=== PATIENT | female | born 1985 ===

== ENCOUNTER 2016-08-24 19:57 | Inpatient (IN) | payer BC, MEDICAID ==
--- NOTE | 2016-08-24 20:29 | ED PDOC ---
HPI: General Adult Time Seen by Provider: 08/24/16 20:25 Chief Complaint (Nursing): Abdominal Pain Chief Complaint (Provider): abdominal pain History Per: Patient History/Exam Limitations: no limitations Additional Complaint(s): 31yo female comes to the ED complaining of abdominal pain and vomit today. Reports sensation of needing to pass a bowel movement but unable to produces when she goes. She denies diarrhea and states she has regular bowel movements normally, last one was yesterday. She has chills but no fever. This has never happened before. Past Medical History Reviewed: Historical Data, Nursing Documentation, Vital Signs Vital Signs: Last Vital Signs Temp 99.2 F 08/25/16 03:29 Pulse 72 08/25/16 03:29 Resp 19 08/25/16 03:29 BP 96/59 L 08/25/16 03:29 Pulse Ox 98 08/25/16 03:29 - Medical History PMH: Hyperthyroidism - Surgical History Surgical History: No Surg Hx - Family History Family History: States: Unknown Family Hx - Home Medications Home Medications: Ambulatory Orders Medication Instructions Recorded No Known Home Med 08/25/16 - Allergies Allergies/Adverse Reactions: Allergies Allergy/AdvReac Type Severity Reaction Status Date / Time No Known Allergies Allergy Verified 06/01/14 11:41 Review of Systems ROS Statement: Except As Marked, All Systems Reviewed And Found Negative Constitutional: Positive for: Chills. Negative for: Fever Gastrointestinal: Positive for: Nausea, Vomiting, Abdominal Pain. Negative for : Diarrhea, Constipation Physical Exam - Reviewed Nursing Documentation Reviewed: Yes Vital Signs Reviewed: Yes - Physical Exam Appears: Positive for: Non-toxic, No Acute Distress, Uncomfortable Head Exam: Positive for: ATRAUMATIC, NORMAL INSPECTION, NORMOCEPHALIC Skin: Positive for: Warm, Dry Eye Exam: Positive for: EOMI, PERRL Cardiovascular/Chest: Positive for: Regular Rate, Rhythm Respiratory: Positive for: Normal Breath Sounds. Negative for: Rales, Rhonchi, Wheezing Gastrointestinal/Abdominal: Positive for: Soft, Tenderness (epigastric). Negative for: Guarding Extremity: Positive for: Normal ROM - Laboratory Results Result Diagrams: 08/24/16 20:36 08/24/16 20:36 - ECG O2 Sat by Pulse Oximetry: 100 (RA) Pulse Ox Interpretation: Normal Medical Decision Making Medical Decision Makin impression gastritis plan labs IV Fluids zofran protonix reassess ED OBSERVATION Date of observation admission: 08/24/16 Time of observation admission: 21:38 - Goals of Observation Goals of observation are:: extended workup, determine disposition - Progress Note Progress Note: 08/24/16 21:38 Reglan, Morphine ordered. US Gallbladder & Pancreas, CT abd/pel w/ ordered. 08/25/16 02:26 Patient continued to have vomiting despite mult rounds of zofran. Patient has appendicitis without rupture on CT. Spoke with Dr. Lopez who will accept consult for surgery, stated to admit patient to hospitalist. Spoke with Dr. Kelley who accepts admission. Disposition - Clinical Impression Clinical Impression: Appendicitis - Patient ED Disposition Is Patient to be Admitted: No - Disposition Disposition Time: 02:30 Condition: STABLE - POA Present On Arrival: None Additional Comments - Additional Comments Additional Comments: Scribe Attestation: Documented by Chacho Sam acting as a scribe for Jack Padgett MD. Provider Scribe Attestation: All medical record entries made by the Scribe were at my direction and personally dictated by me. I have reviewed the chart and agree that the record accurately reflects my personal performance of the history, physical exam, medical decision making, and the department course for this patient. I have also personally directed, reviewed, and agree with the discharge instructions and disposition.
[2016-08-24] MEDS ORDERED: Sodium Chloride 0.9% 1,000 ML IV STA ×2 (20:31→23:34)
[2016-08-24 20:48] LABS: BASO # 0.1 K/uL (0.0-0.2); BASO % 0.4 % (0.0-2.0); EOS # 0.1 K/uL (0.0-0.7); EOS % 0.4 % (0.0-4.0); HEMATOCRIT 39.9 % (34.0-47.0); LYMPH # 1.8 K/uL (1.0-4.3); LYMPH % 12.5 % (20.0-40.0); MEAN CELL VOLUME 83.7 fl (81.0-99.0); MEAN CORPUSCULAR HEMOGLOBIN 27.6 pg (27.0-31.0); MEAN PLATELET VOLUME 9.1 fl (7.2-11.7); MONO # 0.9 K/uL (0.0-0.8); MONO % 5.8 % (0.0-10.0); NEUT % 80.9 % (50.0-75.0); RED CELL DISTRIBUTION WIDTH 12.6 % (11.5-14.5); WHITE BLOOD COUNT 14.8 K/uL (4.8-10.8)
[2016-08-24 20:51] LABS: RBC URINE 4 /hpf (0-3); URINE BACTERIA RARE (<OCC); URINE BILIRUBIN NEGATIVE (NEGATIVE); URINE BLOOD SMALL (NEGATIVE); URINE COLOR YELLOW (YELLOW); URINE GLUCOSE (UA) NEG (Normal); URINE KETONE 80 mg/dL (NEGATIVE); URINE LEUKOCYTE ESTERASE NEG Leu/uL (Negative); URINE PROTEIN 100 mg/dL (NEGATIVE); URINE UROBILINOGEN 0.2-1.0 mg/dL (0.2-1.0); WBC URINE 3 /hpf (0-5)
[2016-08-24 20:59] LABS: ALB/GLOB RATIO 1.2 (1.0-2.1); ALKALINE PHOSPHATASE 68 U/L (38-126); ALT/SGPT 29 U/L (9-52); AST/SGOT 24 U/L (14-36); BILIRUBIN,TOTAL 0.7 mg/dl (0.2-1.3); BLOOD UREA NITROGEN 11 mg/dl (7-17); CALCIUM 9.9 mg/dL (8.4-10.2); CARBON DIOXIDE 21 mmol/L (22-30); CHLORIDE 103 mmol/L (98-107); GFR AFRICAN-AMERICAN > 60; GLUCOSE,RANDOM 131 mg/dL (65-105); LIPASE 79 U/L (23-300); POTASSIUM 3.3 MMOL/L (3.6-5.0); SODIUM 141 mmol/l (132-148); TOTAL PROTEIN 8.7 G/DL (6.3-8.2)
[2016-08-24] MEDS ORDERED: Iohexol 240 (50 ml) PO ONE (21:33)
--- NOTE | 2016-08-24 23:04 | US ---
EXAM: US Abdomen Limited, Right Upper Quadrant CLINICAL HISTORY: 31 years old, female; Pain; Abdominal pain; Epigastric; Additional info: Epig pain, R/O cholecystitis TECHNIQUE: Real-time ultrasound of the right upper quadrant with image documentation. COMPARISON: No relevant prior studies available. FINDINGS: Liver: The liver is unremarkable in echogenicity and size measuring 13.7 cm in longitudinal dimension. No intrahepatic bile duct dilation. Gallbladder: No acute findings. No gallstones. Common bile duct: No stones. No dilation, measuring 3 mm. Pancreas: Visualization of the pancreas is limited by overlying bowel gas. Right kidney: No acute findings. No obstructing stones. No solid mass. No hydronephrosis. The right kidney measures 10.3 x 4.3 x 3.5 cm IMPRESSION: Unremarkable sonographic evaluation of the right upper quadrant, as detailed above. Limited evaluation of the pancreas, secondary to overlying bowel gas.
[2016-08-24] MEDS ORDERED: Iohexol 240 (50 ml) ONE (23:45)
[2016-08-25] MEDS ORDERED: DiphenhydrAMINE 50 mg/ml Inj IVP STA (00:36)
[2016-08-25] MEDS ORDERED: Promethazine 25 MG in Sodium Chloride 0.9% 50 ML IVPB ONE (00:36)
[2016-08-25] MEDS ORDERED: Sodium Chloride 0.9% 50 ML IV ONE (01:17)
[2016-08-25] MEDS ORDERED: Iohexol 300 100 ML IJ ONE (01:17)
[2016-08-25] MEDS ORDERED: Piperacillin/Tazobact 3.375 gm Inj IVPB ONE ×2 (02:15→15:10)
[2016-08-25] MEDS ORDERED: Piperacillin/Tazobact 3.375 GM in Sodium Chloride 0.9% 100 ML IVPB STA (02:18)
[2016-08-25] MEDS ORDERED: Sodium Chloride 0.9% 1,000 ML IV STA (02:19)
--- NOTE | 2016-08-25 02:34 | CP.PCM.HP ---
History of Present Illness - History of Present Illness History of Present Illness: CC: Abd pain, n/v HPI: This is a 31 y/o female with no chronic medical conditions who comes in with abd pain and n/v today. Apparently she describes sensation as needing to pass a BM. She denies f/c. Denies diarrhea. Nothing improves or worsens pain. She has never had these symptoms before. ROS: 14 systems reviewed, negative other than HPI MHx: Hyperthyroid in the past, no medications currently SHx: None Allergies: NKDA Medications: as per med rec Family Hx: Reviewed, negative other than HPI Social Hx: Lives with family, denies tobacco, denies significant EtOH Present on Admission - Present on Admission Any Indicators Present on Admission: No Past Patient History - Past Social History Smoking Status: Unknown If Ever Smoked - ENDOCRINE/METABOLIC Hx Hyperthyroidism: Yes - GENITOURINARY/GYNECOLOGICAL Other/Comment: hx kidney infection - PSYCHIATRIC Hx Substance Use: No - SURGICAL HISTORY Hx Surgeries: No Meds Allergies/Adverse Reactions: Allergies Allergy/AdvReac Type Severity Reaction Status Date / Time No Known Allergies Allergy Verified 06/01/14 11:41 Physical Exam - Constitutional Appears: No Acute Distress - Head Exam Head Exam: ATRAUMATIC, NORMOCEPHALIC - Eye Exam Eye Exam: EOMI, PERRL Pupil Exam: NORMAL ACCOMODATION - ENT Exam ENT Exam: Mucous Membranes Moist - Neck Exam Neck exam: Positive for: Full Rom - Respiratory Exam Respiratory Exam: Clear to Auscultation Bilateral, NORMAL BREATHING PATTERN - Cardiovascular Exam Cardiovascular Exam: REGULAR RHYTHM, +S1, +S2 - GI/Abdominal Exam GI & Abdominal Exam: Normal Bowel Sounds, Soft, Tenderness - Extremities Exam Extremities exam: Positive for: full ROM, normal inspection - Neurological Exam Neurological exam: Alert, CN II-XII Intact, Oriented x3 - Psychiatric Exam Psychiatric exam: Normal Affect, Normal Mood - Skin Skin Exam: Dry, Warm Results - Vital Signs Recent Vital Signs: Last Vital Signs Temp 98.4 F 08/25/16 02:30 Pulse 77 08/25/16 02:30 Resp 16 08/25/16 02:30 BP 106/63 08/25/16 02:30 Pulse Ox 99 08/25/16 02:30 - Labs Result Diagrams: 08/24/16 20:36 08/24/16 20:36 - Imaging and Cardiology US - abdomen Status: Report reviewed by me (no findings) CT scan - abdomen Status: Image reviewed by me (prelim report indicates appendicitis) Assessment & Plan (1) Acute appendicitis Assessment and Plan: 31 y/o female presenting with acute appendicitis. -NPO, IVF -Morphine, Zofran IV for pain, n/v -Cont Zosyn 3.375 q6h IV -Surgical consult (notified, OR likely in AM) -DVT PPx -- SCDs only Status: Acute
[2016-08-25] MEDS: Piperacillin/Tazobact 3.375 GM in Sodium Chloride 0.9% 100 ML IVPB SCH ×4 (04:44→21:48)
[2016-08-25] MEDS: Sodium Chloride 0.9% 1,000 ML IV SCH ×2 (06:32→10:27)
[2016-08-25 07:03] LABS: BASO % 0.1 % (0.0-2.0); HEMATOCRIT 35.4 % (34.0-47.0); LYMPH # 0.8 K/uL (1.0-4.3); LYMPH % 5.5 % (20.0-40.0); MEAN CELL VOLUME 84.4 fl (81.0-99.0); MEAN CORPUSCULAR HEMOGLOBIN 27.4 pg (27.0-31.0); MEAN CORPUSCULAR HGB CONC 32.5 g/dL (33.0-37.0); MEAN PLATELET VOLUME 9.2 fl (7.2-11.7); MONO # 0.8 K/uL (0.0-0.8); MONO % 6.1 % (0.0-10.0); NEUT # 12.3 K/uL (1.8-7.0); NEUT % 88.3 % (50.0-75.0); NRBC % 0.1 % (0.0-0.0); PLATELET COUNT 184 K/uL (130-400); RED CELL DISTRIBUTION WIDTH 12.5 % (11.5-14.5); WHITE BLOOD COUNT 13.9 K/uL (4.8-10.8)
[2016-08-25 07:21] LABS: BLOOD UREA NITROGEN 6 mg/dl (7-17); CALCIUM 7.7 mg/dL (8.4-10.2); CARBON DIOXIDE 20 mmol/L (22-30); CHLORIDE 106 mmol/L (98-107); GFR AFRICAN-AMERICAN > 60; GLUCOSE,RANDOM 123 mg/dL (65-105); POTASSIUM 3.5 MMOL/L (3.6-5.0); SODIUM 138 mmol/l (132-148)
--- NOTE | 2016-08-25 11:11 | CT ---
PROCEDURE: CT Abdomen and pelvis dated 08/25/2016 HISTORY: epig abd pain COMPARISON: None. TECHNIQUE: Contiguous axial images of the abdomen and pelvis performed following oral and intravenous injection of approximately 90 cc Omnipaque 300 contrast material. . Coronal and Sagittal reformats generated. Radiation dose: Total exam DLP = 329.15 mGy-cm. This CT exam was performed using one or more of the following dose reduction techniques: Automated exposure control, adjustment of the mA and/or kV according to patient size, and/or use of iterative reconstruction technique. FINDINGS: LOWER THORAX: Unremarkable. LIVER: Unremarkable. No gross lesion or ductal dilatation. GALLBLADDER AND BILE DUCTS: Unremarkable. PANCREAS: Unremarkable. No mass. No ductal dilatation. SPLEEN: Unremarkable. No splenomegaly. ADRENALS: Unremarkable. KIDNEYS AND URETERS: Unremarkable. No stone or hydronephrosis. BLADDER: Grossly unremarkable. REPRODUCTIVE: Unremarkable. APPENDIX: The appendix is dilated measuring up to 18.5 mm in greatest diameter. The appendix lumen contains bubbles of air and debris. The proximal wall of the appendix is not appear significantly thickened however the walled near the distal aspect and tip is slightly more prominent in caliber and does exhibit some enhancement. There is a focal heterogeneous density seen within the lumen of the base of the appendix that could represent some contrast or possibly an appendicolith. . . Findings most consistent with acute appendicitis. Note that the appendix extends and deep into the right parasagittal aspect of the pelvis -right parasagittal cul de sac. There is also small amount of free fluid within the cul de sac. There also appears to be wall thickening of the adjacent cecum and proximal ascending colon which could be reactive. . These findings on could represent an acute appendicitis with reactive changes of the cecum and proximal ascending colon . Changes in the more distal ascending colon could be secondary additional unopacified adherent stool and peristalsis in the more proximal ascending colon. Note also that the possibility of a localized colitis the with secondary reactive changes of the appendix cannot be completely excluded. Clinical correlation recommended. BOWEL: Evaluation of the bowel is somewhat limited due to incomplete opacification. The stomach is incompletely distended which presumably accounts slight thick-walled appearance. Visualized loops of small bowel exhibit normal contour and caliber. No evidence acute mechanical small bowel obstruction. . The changes of the cecum and at ascending colon have been detailed above. Clinical correlation recommended. . PERITONEUM: No gross free intraperitoneal air. LYMPH NODES: Unremarkable. No enlarged lymph nodes. VASCULATURE: Unremarkable. No aortic aneurysm. BONES: No fracture or destructive lesion. OTHER FINDINGS: None. IMPRESSION: Marked dilatation of the appendix however the appendix contains fluid and air with no significant wall thickening proximally however distally and at the tip of the wall is slightly thickened and exhibits some enhancement. . Findings are consistent with acute appendicitis with secondary reactive changes and thickening of the wall of the cecum however the possibility of a colitis with secondary reactive changes involving the appendix also not excluded. . Note that the appendix extends deep into the right parasagittal aspect of the pelvis and there is a small amount of free fluid within the cul de sac adjacent to the tip of the appendix. Note that this case was reviewed and findings discussed with Dr. James at approximately at 10:10 p.m. with written down and read back verification.
[2016-08-25 11:23] LABS: NEUTROPHIL 90 % (42-75); REACTIVE LYMPHOCYTES 4 % (0-0); TOTAL CELLS COUNTED 100
--- NOTE | 2016-08-25 11:26 | CP.PCM.CON ---
<Noah Patterson - Last Filed: 08/25/16 11:17> History of Present Illness - History of Present Illness History of Present Illness: General Surgery Consult Note for Dr. James CC: Abdominal Pain X 1 day HPI: This is a 31 year old mother of 3, started experiencing lower abdominal pain yesterday early afternoon. She reports that she had soup for lunch and and that she threw it up. She reports the pain has been getting progressively worse. The patient reports in ability to urinate until this AM. She denies any fevers, or chills, at home. She reports nonbloody non bilious emesis. She denies any hematochezia or hematuria. PMH: Hyperthyroid PSH: Denies ALL: Nkda Social: Denies tobacco, ETOH, or drug use Review of Systems - Review of Systems All systems: reviewed and no additional remarkable complaints except Past Patient History - Past Medical History & Family History Past Medical History?: Yes - Past Social History Smoking Status: Never Smoked - CARDIAC Hx Cardiac Disorders: No - PULMONARY Hx Respiratory Disorders: No - NEUROLOGICAL Hx Neurological Disorder: No - HEENT Hx HEENT Problems: No - RENAL Hx Chronic Kidney Disease: No - ENDOCRINE/METABOLIC Hx Endocrine Disorders: Yes Hx Hyperthyroidism: Yes - HEMATOLOGICAL/ONCOLOGICAL Hx Blood Disorders: No - INTEGUMENTARY Hx Dermatological Problems: No - MUSCULOSKELETAL/RHEUMATOLOGICAL Hx Musculoskeletal Disorders: No Hx Falls: No - GASTROINTESTINAL Hx Gastrointestinal Disorders: No - GENITOURINARY/GYNECOLOGICAL Hx Genitourinary Disorders: Yes Other/Comment: hx kidney infection - PSYCHIATRIC Hx Psychophysiologic Disorder: No Hx Substance Use: No - SURGICAL HISTORY Hx Surgeries: No - ANESTHESIA Hx Anesthesia: No Hx Anesthesia Reactions: No Hx Malignant Hyperthermia: No Meds Allergies/Adverse Reactions: Allergies Allergy/AdvReac Type Severity Reaction Status Date / Time No Known Allergies Allergy Verified 06/01/14 11:41 - Medications Medications: Current Medications Piperacillin Sod/Tazobactam (Sod 3.375 gm/ Sodium Chloride) 100 mls @ 100 mls/ hr IVPB Q6 JAKY Last Admin: 08/25/16 10:27 Dose: 100 mls/hr Sodium Chloride (Sodium Chloride 0.9%) 1,000 mls @ 100 mls/hr IV .Q10H JAKY Stop: 08/25/16 22:29 Last Admin: 08/25/16 10:27 Dose: 100 mls/hr Morphine Sulfate (Morphine) 2 mg IVP Q4 PRN PRN Reason: Pain, Mild (1-3) Morphine Sulfate (Morphine) 4 mg IVP Q4 PRN PRN Reason: Pain, moderate (4-7) Last Admin: 08/25/16 06:42 Dose: 4 mg Ondansetron HCl (Zofran Inj) 4 mg IVP Q6 PRN PRN Reason: Nausea/Vomiting Physical Exam - Constitutional Appears: Non-toxic, No Acute Distress - Head Exam Head Exam: ATRAUMATIC, NORMOCEPHALIC - Eye Exam Eye Exam: EOMI, Normal appearance - ENT Exam ENT Exam: Mucous Membranes Moist - Respiratory Exam Respiratory Exam: NORMAL BREATHING PATTERN - Cardiovascular Exam Cardiovascular Exam: +S1, +S2 - GI/Abdominal Exam GI & Abdominal Exam: Firm, Guarding, Rebound, Tenderness. absent: Distended, Hernia Additional comments: Positive rovsing, positive psoas - Neurological Exam Neurological exam: Alert, Oriented x3 - Psychiatric Exam Psychiatric exam: Normal Affect, Normal Mood - Skin Skin Exam: Dry, Intact Results - Vital Signs Recent Vital Signs: Last Vital Signs Temp 98.8 F 08/25/16 07:21 Pulse 89 08/25/16 07:21 Resp 18 08/25/16 07:21 BP 98/61 L 08/25/16 07:21 Pulse Ox 98 08/25/16 07:21 - Labs Result Diagrams: 08/25/16 05:45 08/25/16 05:45 Labs: Laboratory Results - last 24 hr 08/25/16 08/25/16 05:45 05:45 WBC 13.9 H RBC 4.19 Hgb 11.5 L Hct 35.4 MCV 84.4 MCH 27.4 MCHC 32.5 L RDW 12.5 Plt Count 184 MPV 9.2 Neut % (Auto) 88.3 H Lymph % (Auto) 5.5 L [place] % (Auto) 6.1 Eos % (Auto) 0.0 Baso % (Auto) 0.1 Neut # 12.3 H Lymph # 0.8 L [place] # 0.8 Eos # 0.0 Baso # 0.0 Sodium 138 Potassium 3.5 L Chloride 106 Carbon Dioxide 20 L Anion Gap 16 BUN 6 L Creatinine 0.5 L Est GFR ( Amer) > 60 Est GFR (Non-Af Amer) > 60 Random Glucose 123 H Calcium 7.7 L - Imaging and Cardiology CT scan - abdomen Status: Image reviewed by me CT scan - pelvis Status: Image reviewed by me Assessment & Plan - Assessment and Plan (Free Text) Assessment: This is a 31F with acute appendicitis OR today Continue medical management per primary team. <Erick James - Last Filed: 08/25/16 13:22> History of Present Illness - History of Present Illness History of Present Illness: Patient was seen and examined at the bedside. Agree with resident's note above. Meds - Medications Medications: Current Medications Piperacillin Sod/Tazobactam (Sod 3.375 gm/ Sodium Chloride) 100 mls @ 100 mls/ hr IVPB Q6 JAKY Last Admin: 08/25/16 10:27 Dose: 100 mls/hr Sodium Chloride (Sodium Chloride 0.9%) 1,000 mls @ 100 mls/hr IV .Q10H JAKY Stop: 08/25/16 22:29 Last Admin: 08/25/16 10:27 Dose: 100 mls/hr Morphine Sulfate (Morphine) 2 mg IVP Q4 PRN PRN Reason: Pain, Mild (1-3) Morphine Sulfate (Morphine) 4 mg IVP Q4 PRN PRN Reason: Pain, moderate (4-7) Last Admin: 08/25/16 06:42 Dose: 4 mg Ondansetron HCl (Zofran Inj) 4 mg IVP Q6 PRN PRN Reason: Nausea/Vomiting Results - Vital Signs Recent Vital Signs: Last Vital Signs Temp 98.8 F 08/25/16 07:21 Pulse 89 08/25/16 07:21 Resp 18 08/25/16 07:21 BP 98/61 L 08/25/16 07:21 Pulse Ox 98 08/25/16 07:21 - Labs Result Diagrams: 08/25/16 05:45 08/25/16 05:45 Labs: Laboratory Results - last 24 hr 08/25/16 08/25/16 05:45 05:45 WBC 13.9 H RBC 4.19 Hgb 11.5 L Hct 35.4 MCV 84.4 MCH 27.4 MCHC 32.5 L RDW 12.5 Plt Count 184 MPV 9.2 Neut % (Auto) 88.3 H Lymph % (Auto) 5.5 L [place] % (Auto) 6.1 Eos % (Auto) 0.0 Baso % (Auto) 0.1 Neut # 12.3 H Lymph # 0.8 L [place] # 0.8 Eos # 0.0 Baso # 0.0 Neutrophils % (Manual) 90 H Band Neutrophils % 1 Lymphocytes % (Manual) 1 L Reactive Lymphs % 4 H Monocytes % (Manual) 4 Platelet Estimate Normal Hypochromasia (manual) Slight Sodium 138 Potassium 3.5 L Chloride 106 Carbon Dioxide 20 L Anion Gap 16 BUN 6 L Creatinine 0.5 L Est GFR ( Amer) > 60 Est GFR (Non-Af Amer) > 60 Random Glucose 123 H Calcium 7.7 L Assessment & Plan - Assessment and Plan (Free Text) Plan: - Keep NPO - IV fluids - Pain control - Continue antibiotics - To OR for Appendectomy today
[2016-08-25] MEDS ORDERED: Bupivacaine HCl 0.5% PF (30 ml) Inj ONE (11:35)
[2016-08-25] MEDS ORDERED: Midazolam 2 MG/2 ML VIAL ONE ×2 (12:02→13:01)
[2016-08-25] MEDS ORDERED: Succinylcholine 200 mg/10 ml Inj IV ONE (12:02)
[2016-08-25] MEDS ORDERED: Propofol 10 mg/ml Inj (20 ML) ONE (12:02)
[2016-08-25] MEDS ORDERED: Lidocaine Hydrochloride 5 ML INJ ONE (12:03)
[2016-08-25] MEDS ORDERED: Neostigmine Methylsulfate 2 MG/2 ML ML IV ONE (12:03)
[2016-08-25] MEDS ORDERED: Rocuronium 10 mg/ml (5 ml) ONE (12:05)
[2016-08-25] MEDS ORDERED: Bupivacaine 0.5% Inj(30mL) IJ ONE (13:26)
[2016-08-25] MEDS ORDERED: Neostigmine Methylsulfate 3mg/3ml Syringe IV ONE (13:47)
[2016-08-25] MEDS ORDERED: Lactated Ringer's 1,000 ML IV ONE (14:20)
--- NOTE | 2016-08-25 14:21 | PCM.SURG1 ---
Surgeon's Initial Post Op Note - Surgeon's Notes Surgeon: Dr. Lopez Boatswain Mate: Dr. Patterson PGY-1 Type of Anesthesia: General Endo Pre-Operative Diagnosis: Appendicitis Operative Findings: See operative Note Post-Operative Diagnosis: Acute appendicitis Operation Performed: Laparoscopic Appendectomy Specimen/Specimens Removed: Inflamed appendix Estimated Blood Loss: EBL {In ML}: 5 Drains Used: No Drains Post-Op Condition: Good Date of Surgery/Procedure: 08/25/16 Time of Surgery/Procedure: 14:21
[2016-08-25] MEDS ORDERED: HYDROmorphone 0.5 mg/0.5 ml ISec IVP PRN (14:23)
[2016-08-26] MEDS: Piperacillin/Tazobact 3.375 GM in Sodium Chloride 0.9% 100 ML IVPB SCH ×4 (04:02→21:34)
[2016-08-26 07:07] LABS: BLOOD UREA NITROGEN 5 mg/dl (7-17); CALCIUM 8.7 mg/dL (8.4-10.2); CARBON DIOXIDE 26 mmol/L (22-30); CHLORIDE 101 mmol/L (98-107); GFR AFRICAN-AMERICAN > 60; GLUCOSE,RANDOM 121 mg/dL (65-105); HEMATOCRIT 37.4 % (34.0-47.0); MEAN CELL VOLUME 84.1 fl (81.0-99.0); MEAN CORPUSCULAR HEMOGLOBIN 28.2 pg (27.0-31.0); MEAN CORPUSCULAR HGB CONC 33.5 g/dL (33.0-37.0); POTASSIUM 3.8 MMOL/L (3.6-5.0); RED CELL DISTRIBUTION WIDTH 12.6 % (11.5-14.5); SODIUM 138 mmol/l (132-148); WHITE BLOOD COUNT 10.8 K/uL (4.8-10.8)
[2016-08-26] MEDS ORDERED: Sodium Chloride 0.9% 1,000 ML IV SCH (09:15)
--- NOTE | 2016-08-26 11:07 | CP.PCM.PN ---
Subjective - Date & Time of Evaluation Date of Evaluation: 08/26/16 Time of Evaluation: 11:07 - Subjective Subjective: pt feeling well tmax 100.3 today no wbc no BM or flatus tachy 2/2 fever pain is well contrlled vss now nad Objective - Vital Signs/Intake and Output Vital Signs (last 24 hours): Temp Pulse Resp BP Pulse Ox 100.3 F H 104 H 20 104/70 98 08/26/16 08:02 08/26/16 08:02 08/26/16 08:02 08/26/16 08:02 08/26/16 08:02 - Medications Medications: Current Medications Piperacillin Sod/Tazobactam (Sod 3.375 gm/ Sodium Chloride) 100 mls @ 100 mls/ hr IVPB Q6 JAKY Last Admin: 08/26/16 04:02 Dose: 100 mls/hr Sodium Chloride (Sodium Chloride 0.9%) 1,000 mls @ 250 mls/hr IV .Q4H JAKY Stop: 08/26/16 13:14 Morphine Sulfate (Morphine) 2 mg IVP Q4 PRN PRN Reason: Pain, Mild (1-3) Last Admin: 08/26/16 10:43 Dose: 2 mg Morphine Sulfate (Morphine) 4 mg IVP Q4 PRN PRN Reason: Pain, moderate (4-7) Last Admin: 08/25/16 21:44 Dose: 4 mg Ondansetron HCl (Zofran Inj) 4 mg IVP Q6 PRN PRN Reason: Nausea/Vomiting - Labs Labs: 08/26/16 05:40 08/26/16 05:40 - Constitutional Appears: Non-toxic, No Acute Distress - Head Exam Head Exam: ATRAUMATIC, NORMOCEPHALIC - Eye Exam Eye Exam: EOMI, Normal appearance, PERRL Pupil Exam: NORMAL ACCOMODATION - ENT Exam ENT Exam: Mucous Membranes Moist, Normal Oropharynx - Neck Exam Neck Exam: Full ROM, Normal Inspection - Respiratory Exam Respiratory Exam: Clear to Ausculation Bilateral, NORMAL BREATHING PATTERN. absent: Decreased Breath Sounds, Prolonged Expiratory Phase, Rales - Cardiovascular Exam Cardiovascular Exam: REGULAR RHYTHM, RRR, +S1, +S2 - GI/Abdominal Exam GI & Abdominal Exam: Soft, Tenderness (at op site). absent: Mass, Organomegaly - Extremities Exam Extremities Exam: Normal Capillary Refill. absent: Calf Tenderness, Joint Swelling - Back Exam Back Exam: absent: CVA tenderness (L), CVA tenderness (R) - Neurological Exam Neurological Exam: Alert, Awake, Oriented x3 - Psychiatric Exam Psychiatric exam: Normal Affect, Normal Mood - Skin Skin Exam: Dry, Warm Assessment and Plan - Assessment and Plan (Free Text) Plan: (1) Acute appendicitis Assessment and Plan: s/p appendectomy POD 1 -Morphine, Zofran IV for pain, n/v -Cont Zosyn 3.375 q6h IV -Surgical consult : Dr. James appreciated and followed -DVT PPx -- SCDs only
--- NOTE | 2016-08-26 11:23 | CP.PCM.PN ---
<Noah Patterson - Last Filed: 08/26/16 11:26> Subjective - Date & Time of Evaluation Date of Evaluation: 08/26/16 Time of Evaluation: 10:23 - Subjective Subjective: General Surgery Note for Dr. James This 31F was seen and examined this Am at bedside. She reports pain overnight which responded to morphine. She denies any fevers, chills, chest pain, nausea, vomitting or diarrhea. Patient reports tolerating clears, denies flatus or BM. Objective - Vital Signs/Intake and Output Vital Signs (last 24 hours): Temp Pulse Resp BP Pulse Ox 100.3 F H 104 H 20 104/70 98 08/26/16 08:02 08/26/16 08:02 08/26/16 08:02 08/26/16 08:02 08/26/16 08:02 - Medications Medications: Current Medications Piperacillin Sod/Tazobactam (Sod 3.375 gm/ Sodium Chloride) 100 mls @ 100 mls/ hr IVPB Q6 JAKY Last Admin: 08/26/16 04:02 Dose: 100 mls/hr Sodium Chloride (Sodium Chloride 0.9%) 1,000 mls @ 250 mls/hr IV .Q4H JAKY Stop: 08/26/16 13:14 Morphine Sulfate (Morphine) 2 mg IVP Q4 PRN PRN Reason: Pain, Mild (1-3) Last Admin: 08/26/16 10:43 Dose: 2 mg Morphine Sulfate (Morphine) 4 mg IVP Q4 PRN PRN Reason: Pain, moderate (4-7) Last Admin: 08/25/16 21:44 Dose: 4 mg Ondansetron HCl (Zofran Inj) 4 mg IVP Q6 PRN PRN Reason: Nausea/Vomiting - Labs Labs: 08/26/16 05:40 08/26/16 05:40 - Constitutional Appears: Non-toxic, No Acute Distress - Head Exam Head Exam: ATRAUMATIC, NORMOCEPHALIC - Eye Exam Eye Exam: EOMI, Normal appearance - ENT Exam ENT Exam: Mucous Membranes Moist, Normal Exam - Respiratory Exam Respiratory Exam: Clear to Ausculation Bilateral - Cardiovascular Exam Cardiovascular Exam: REGULAR RHYTHM <Erick James - Last Filed: 08/26/16 15:11> Subjective - Subjective Subjective: Patient was seen and examined at the bedside. Agree with resident's note above Objective - Vital Signs/Intake and Output Vital Signs (last 24 hours): Temp Pulse Resp BP Pulse Ox 100.3 F H 104 H 20 104/70 98 08/26/16 08:02 08/26/16 08:02 08/26/16 08:02 08/26/16 08:02 08/26/16 08:02 - Medications Medications: Current Medications Guaifenesin (Mucinex [place]) 600 mg PO Q12 JAKY Piperacillin Sod/Tazobactam (Sod 3.375 gm/ Sodium Chloride) 100 mls @ 100 mls/ hr IVPB Q6 JAKY Last Admin: 08/26/16 12:30 Dose: 100 mls/hr Morphine Sulfate (Morphine) 2 mg IVP Q4 PRN PRN Reason: Pain, Mild (1-3) Last Admin: 08/26/16 10:43 Dose: 2 mg Morphine Sulfate (Morphine) 4 mg IVP Q4 PRN PRN Reason: Pain, moderate (4-7) Last Admin: 08/25/16 21:44 Dose: 4 mg Ondansetron HCl (Zofran Inj) 4 mg IVP Q6 PRN PRN Reason: Nausea/Vomiting - Constitutional Appears: Non-toxic, No Acute Distress - Head Exam Head Exam: ATRAUMATIC, NORMAL INSPECTION, NORMOCEPHALIC - Eye Exam Eye Exam: EOMI, Normal appearance, PERRL Pupil Exam: NORMAL ACCOMODATION, PERRL - ENT Exam ENT Exam: Mucous Membranes Moist, Normal Exam - Neck Exam Neck Exam: Full ROM, Normal Inspection - Respiratory Exam Respiratory Exam: Clear to Ausculation Bilateral, NORMAL BREATHING PATTERN - Cardiovascular Exam Cardiovascular Exam: REGULAR RHYTHM, +S1, +S2 - GI/Abdominal Exam GI & Abdominal Exam: Soft, Normal Bowel Sounds Additional comments: hemant-incisional tenderness, ND, no rebound, no guarding, incisions with bandaids , no erythema - Rectal Exam Rectal Exam: Deferred - Extremities Exam Extremities Exam: Full ROM, Normal Inspection - Neurological Exam Neurological Exam: Alert, Awake, Normal Gait, Oriented x3 - Psychiatric Exam Psychiatric exam: Normal Affect, Normal Mood - Skin Skin Exam: Dry, Intact, Normal Color, Warm Assessment and Plan - Assessment and Plan (Free Text) Assessment: 31 y.o. female s/p Laparoscopic Appendectomy for perforated appendicitis Plan: - Start Regular diet - Pain control - Continue antibiotics - Insentive spirometry - DVT ppx - Repeat labs in am - Will follow - Out of bed and ambulate
[2016-08-26] MEDS: guaiFENesin 600 mg ER Tab PO SCH ×2 (16:56→21:35)
[2016-08-27] MEDS: Piperacillin/Tazobact 3.375 GM in Sodium Chloride 0.9% 100 ML IVPB SCH ×4 (03:27→21:47)
[2016-08-27 06:55] LABS: BASO % 0.1 % (0.0-2.0); HEMATOCRIT 36.1 % (34.0-47.0); LYMPH # 1.2 K/uL (1.0-4.3); LYMPH % 8.5 % (20.0-40.0); MEAN CELL VOLUME 84.7 fl (81.0-99.0); MEAN CORPUSCULAR HEMOGLOBIN 27.2 pg (27.0-31.0); MEAN CORPUSCULAR HGB CONC 32.1 g/dL (33.0-37.0); MONO # 0.7 K/uL (0.0-0.8); MONO % 4.9 % (0.0-10.0); NEUT # 12.4 K/uL (1.8-7.0); NEUT % 86.5 % (50.0-75.0); NRBC % 0.1 % (0.0-0.0); RED CELL DISTRIBUTION WIDTH 12.5 % (11.5-14.5); WHITE BLOOD COUNT 14.3 K/uL (4.8-10.8)
[2016-08-27 07:24] LABS: BLOOD UREA NITROGEN 7 mg/dl (7-17); CALCIUM 8.6 mg/dL (8.4-10.2); CARBON DIOXIDE 28 mmol/L (22-30); CHLORIDE 101 mmol/L (98-107); GFR AFRICAN-AMERICAN > 60; GLUCOSE,RANDOM 103 mg/dL (65-105); POTASSIUM 3.6 MMOL/L (3.6-5.0); SODIUM 139 mmol/l (132-148)
--- NOTE | 2016-08-27 08:22 | CP.PCM.PN ---
Subjective - Date & Time of Evaluation Date of Evaluation: 08/27/16 Time of Evaluation: 07:25 - Subjective Subjective: General Surgery Pt S&E, NAEO. Tmax 100.1 overnight. Still with some pain but it is improving. Ambulating, tolerating diet but not very hungry. Using IS. Objective - Vital Signs/Intake and Output Vital Signs (last 24 hours): Temp Pulse Resp BP Pulse Ox 100.0 F H 105 H 18 106/72 96 08/27/16 07:42 08/27/16 07:42 08/27/16 07:42 08/27/16 07:42 08/27/16 07:42 - Medications Medications: Current Medications Acetaminophen (Tylenol 325mg Tab) 650 mg PO Q4 PRN PRN Reason: Fever >100.4 F Last Admin: 08/26/16 16:49 Dose: 650 mg Guaifenesin (Mucinex La) 600 mg PO Q12 [facility] Last Admin: 08/26/16 21:35 Dose: 600 mg Piperacillin Sod/Tazobactam (Sod 3.375 gm/ Sodium Chloride) 100 mls @ 100 mls/ hr IVPB Q6 [facility] Last Admin: 08/27/16 03:27 Dose: 100 mls/hr Morphine Sulfate (Morphine) 2 mg IVP Q4 PRN PRN Reason: Pain, Mild (1-3) Last Admin: 08/27/16 02:12 Dose: 2 mg Morphine Sulfate (Morphine) 4 mg IVP Q4 PRN PRN Reason: Pain, moderate (4-7) Last Admin: 08/25/16 21:44 Dose: 4 mg Ondansetron HCl (Zofran Inj) 4 mg IVP Q6 PRN PRN Reason: Nausea/Vomiting - Labs Labs: 08/27/16 05:30 08/27/16 05:30 - Constitutional Appears: Non-toxic, No Acute Distress - Head Exam Head Exam: ATRAUMATIC, NORMOCEPHALIC - Respiratory Exam Respiratory Exam: NORMAL BREATHING PATTERN. absent: Respiratory Distress - GI/Abdominal Exam GI & Abdominal Exam: Guarding (mild in RLQ), Soft, Tenderness (at incision sites ). absent: Distended, Firm, Rigid Additional comments: dressings C/D/I - Neurological Exam Neurological Exam: Alert, Awake - Skin Skin Exam: Dry, Warm Assessment and Plan - Assessment and Plan (Free Text) Assessment: 31F s/p lap appendectomy POD#3 Plan: Encouraged ambulation and IS use DVT ppx Analgesia Cont Abx AM labs Will D/W Dr. Jacob Short PGY3
[2016-08-27] MEDS: guaiFENesin 600 mg ER Tab PO SCH ×2 (08:37→21:40)
--- NOTE | 2016-08-27 12:54 | CP.PCM.PN ---
Subjective - Date & Time of Evaluation Date of Evaluation: 08/27/16 Time of Evaluation: 14:00 - Subjective Subjective: Patient seen and examined bedside. Still with fever episodes Tmax 100.3 this AM . With 1 episode of diarrhea this morning and more abdominal pain especially to lower abdomen.BP stable WBC trending up[ to 14 K Tolerating PO intake Objective - Vital Signs/Intake and Output Vital Signs (last 24 hours): Temp Pulse Resp BP Pulse Ox 100.0 F H 105 H 18 106/72 96 08/27/16 07:42 08/27/16 07:42 08/27/16 07:42 08/27/16 07:42 08/27/16 07:42 - Medications Medications: Current Medications Acetaminophen (Tylenol 325mg Tab) 650 mg PO Q4 PRN PRN Reason: Fever >100.4 F Last Admin: 08/26/16 16:49 Dose: 650 mg Guaifenesin (Mucinex La) 600 mg PO Q12 [facility] Last Admin: 08/27/16 08:37 Dose: 600 mg Piperacillin Sod/Tazobactam (Sod 3.375 gm/ Sodium Chloride) 100 mls @ 100 mls/ hr IVPB Q6 [facility] Last Admin: 08/27/16 09:23 Dose: 100 mls/hr Morphine Sulfate (Morphine) 2 mg IVP Q4 PRN PRN Reason: Pain, Mild (1-3) Last Admin: 08/27/16 02:12 Dose: 2 mg Morphine Sulfate (Morphine) 4 mg IVP Q4 PRN PRN Reason: Pain, moderate (4-7) Last Admin: 08/25/16 21:44 Dose: 4 mg Ondansetron HCl (Zofran Inj) 4 mg IVP Q6 PRN PRN Reason: Nausea/Vomiting - Labs Labs: 08/27/16 05:30 08/27/16 05:30 - Constitutional Appears: Non-toxic, No Acute Distress - Head Exam Head Exam: ATRAUMATIC, NORMAL INSPECTION, NORMOCEPHALIC - Eye Exam Eye Exam: EOMI, Normal appearance, PERRL Pupil Exam: NORMAL ACCOMODATION - ENT Exam ENT Exam: Mucous Membranes Moist, Normal Exam - Neck Exam Neck Exam: Full ROM, Normal Inspection. absent: Lymphadenopathy - Respiratory Exam Respiratory Exam: Clear to Ausculation Bilateral, NORMAL BREATHING PATTERN. absent: Rales, Rhonchi, Wheezes - Cardiovascular Exam Cardiovascular Exam: REGULAR RHYTHM, RRR, +S1, +S2. absent: JVD - GI/Abdominal Exam GI & Abdominal Exam: Soft, Tenderness (RLQ ), Normal Bowel Sounds. absent: Distended, Guarding, Rebound - Rectal Exam Rectal Exam: Deferred - Extremities Exam Extremities Exam: Full ROM, Normal Capillary Refill, Normal Inspection. absent : Calf Tenderness, Pedal Edema - Back Exam Back Exam: NORMAL INSPECTION - Neurological Exam Neurological Exam: Alert, Awake, CN II-XII Intact, Oriented x3 - Psychiatric Exam Psychiatric exam: Normal Affect, Normal Mood - Skin Skin Exam: Dry, Intact, Normal Color, Warm Assessment and Plan - Assessment and Plan (Free Text) Assessment: 31 y./o female with no PMH presented with abdominal pain and diagnosed with acute appendicitis. Patient underwent lap appendectomy. Today post op Day 2 , still febrile and WBC trending up. 1.Acute appendicitis s/p appendectomy POD 2 Still febrile Tmax 100.3 and WBC trending up to 14 K Continue Zosyn IV and pain management surgery on consult and following Promote ambulation Continue regular diet
[2016-08-27] MEDS: Sodium Chloride 0.9% 1,000 ML IV SCH (17:34)
[2016-08-28] MEDS: Piperacillin/Tazobact 3.375 GM in Sodium Chloride 0.9% 100 ML IVPB SCH ×4 (04:15→21:08)
[2016-08-28] MEDS: Sodium Chloride 0.9% 1,000 ML IV SCH (05:52)
[2016-08-28 08:49] LABS: HEMATOCRIT 34.4 % (34.0-47.0); MEAN CELL VOLUME 84.5 fl (81.0-99.0); MEAN CORPUSCULAR HEMOGLOBIN 27.3 pg (27.0-31.0); MEAN CORPUSCULAR HGB CONC 32.3 g/dL (33.0-37.0); RED CELL DISTRIBUTION WIDTH 12.8 % (11.5-14.5); WHITE BLOOD COUNT 14.1 K/uL (4.8-10.8)
[2016-08-28 09:10] LABS: ALB/GLOB RATIO 0.9 (1.0-2.1); ALKALINE PHOSPHATASE 95 U/L (38-126); ALT/SGPT 27 U/L (9-52); AST/SGOT 25 U/L (14-36); BILIRUBIN,TOTAL 0.8 mg/dl (0.2-1.3); BLOOD UREA NITROGEN 7 mg/dl (7-17); CALCIUM 8.7 mg/dL (8.4-10.2); CARBON DIOXIDE 20 mmol/L (22-30); CHLORIDE 103 mmol/L (98-107); GFR AFRICAN-AMERICAN > 60; GLUCOSE,RANDOM 84 mg/dL (65-105); POTASSIUM 3.1 MMOL/L (3.6-5.0); SODIUM 139 mmol/l (132-148); TOTAL PROTEIN 6.9 G/DL (6.3-8.2)
[2016-08-28] MEDS: guaiFENesin 600 mg ER Tab PO SCH ×2 (09:21→21:10)
--- NOTE | 2016-08-28 09:38 | CP.PCM.PN ---
Subjective - Date & Time of Evaluation Date of Evaluation: 08/28/16 Time of Evaluation: 09:37 - Subjective Subjective: patient feeling improved this morning states she continues to have episodes of diarrhea, appx 3 overnight pain 2/2 diarrhea, less so incision sites. discussed changing pain medications to motrin and percocet. otherwise, patient is ambulating well, tolerating regular diet, without good appetite. HD stable WBC still elevated 14.1 K 3.1, Mg added on to AM labs repleted Objective - Vital Signs/Intake and Output Vital Signs (last 24 hours): Temp Pulse Resp BP Pulse Ox 98.5 F 97 H 18 108/72 98 08/28/16 08:48 08/28/16 08:48 08/28/16 08:48 08/28/16 08:48 08/28/16 08:48 Intake and Output: 08/28/16 08/28/16 06:59 18:59 Intake Total 960 Balance 960 - Medications Medications: Current Medications Acetaminophen (Tylenol 325mg Tab) 650 mg PO Q4 PRN PRN Reason: Fever >100.4 F Last Admin: 08/26/16 16:49 Dose: 650 mg Guaifenesin (Mucinex La) 600 mg PO Q12 [facility] Last Admin: 08/28/16 09:21 Dose: 600 mg Piperacillin Sod/Tazobactam (Sod 3.375 gm/ Sodium Chloride) 100 mls @ 100 mls/ hr IVPB Q6 [facility] Last Admin: 08/28/16 09:21 Dose: 100 mls/hr Sodium Chloride (Sodium Chloride 0.9%) 1,000 mls @ 80 mls/hr IV .[id number] [facility] Stop: 08/28/16 17:11 Last Admin: 08/28/16 05:52 Dose: Not Given Morphine Sulfate (Morphine) 2 mg IVP Q4 PRN PRN Reason: Pain, Mild (1-3) Last Admin: 08/28/16 08:06 Dose: 2 mg Morphine Sulfate (Morphine) 4 mg IVP Q4 PRN PRN Reason: Pain, moderate (4-7) Last Admin: 08/25/16 21:44 Dose: 4 mg Ondansetron HCl (Zofran Inj) 4 mg IVP Q6 PRN PRN Reason: Nausea/Vomiting - Labs Labs: 08/28/16 07:30 08/28/16 07:30 - Constitutional Appears: Non-toxic, No Acute Distress - Head Exam Head Exam: ATRAUMATIC, NORMOCEPHALIC - Eye Exam Eye Exam: EOMI, Normal appearance, PERRL Pupil Exam: NORMAL ACCOMODATION - ENT Exam ENT Exam: Mucous Membranes Moist, Normal Oropharynx - Neck Exam Neck Exam: Full ROM, Normal Inspection - Respiratory Exam Respiratory Exam: Clear to Ausculation Bilateral, NORMAL BREATHING PATTERN. absent: Wheezes - Cardiovascular Exam Cardiovascular Exam: RRR, +S1, +S2. absent: Gallop, Rubs, Murmur - GI/Abdominal Exam GI & Abdominal Exam: Soft, Tenderness (INCISION SITES. CLEAN DRY INTACT). absent: Mass, Organomegaly - Extremities Exam Extremities Exam: Normal Capillary Refill. absent: Joint Swelling - Back Exam Back Exam: absent: CVA tenderness (L), CVA tenderness (R) - Neurological Exam Neurological Exam: Alert, Awake, Oriented x3 - Psychiatric Exam Psychiatric exam: Normal Affect, Normal Mood - Skin Skin Exam: Dry, Warm Assessment and Plan - Assessment and Plan (Free Text) Plan: 31F no PMH initially presented with abdominal pain and diagnosed with acute appendicitis. Patient underwent lap appendectomy. POD 2, patient febrile, continued to be on antibiotics. POD 3, afebrile 24H, WBC 14.1. Pt continues to have diarrhea. 1.Acute appendicitis s/p appendectomy POD 3 afebrile for 24 hours. WBC still 14.1 Continue Zosyn IV and pain management Pain meds adjusted to Percocet and motrin as patient states pain is more during episodes of diarrhea Surgery on consult and following Strongly encouraged ambulation Continue regular diet
[2016-08-28] MEDS ORDERED: Potassium Chloride 20 mEq ER Tab PO ONE (09:39)
--- NOTE | 2016-08-28 12:08 | CP.PCM.PN ---
Subjective - Date & Time of Evaluation Date of Evaluation: 08/28/16 Time of Evaluation: 10:00 - Subjective Subjective: GENERAL SURGERY PROGRESS NOTE FOR DR. POLLOCK Patient seen and examined at bedside. She states that her pain is intermittent in the RLQ and LLQ. She is tolerating regular diet but is not eating much because of decreased appetite. She denies nausea or vomiting. She ambulated for an hour yesterday. She had 3 episodes of diarrhea last night. Objective - Vital Signs/Intake and Output Vital Signs (last 24 hours): Temp Pulse Resp BP Pulse Ox 98.5 F 97 H 18 108/72 98 08/28/16 08:48 08/28/16 08:48 08/28/16 08:48 08/28/16 08:48 08/28/16 08:48 Intake and Output: 08/28/16 08/28/16 06:59 18:59 Intake Total 960 Balance 960 - Medications Medications: Current Medications Acetaminophen (Tylenol 325mg Tab) 650 mg PO Q4 PRN PRN Reason: Fever >100.4 F Last Admin: 08/26/16 16:49 Dose: 650 mg Guaifenesin (Mucinex La) 600 mg PO Q12 [facility] Last Admin: 08/28/16 09:21 Dose: 600 mg Piperacillin Sod/Tazobactam (Sod 3.375 gm/ Sodium Chloride) 100 mls @ 100 mls/ hr IVPB Q6 [facility] Last Admin: 08/28/16 09:21 Dose: 100 mls/hr Sodium Chloride (Sodium Chloride 0.9%) 1,000 mls @ 80 mls/hr IV .[id number] [facility] Stop: 08/28/16 17:11 Last Admin: 08/28/16 05:52 Dose: Not Given Ibuprofen (Motrin Tab) 600 mg PO Q6 PRN PRN Reason: Pain, moderate (4-7) Ondansetron HCl (Zofran Inj) 4 mg IVP Q6 PRN PRN Reason: Nausea/Vomiting Oxycodone/Acetaminophen (Percocet 5/325 Mg Tab) 1 tab PO Q6 PRN PRN Reason: Pain, severe (8-10) Stop: 08/31/16 09:41 - Labs Labs: 08/28/16 07:30 08/28/16 07:30 - Constitutional Appears: Non-toxic, No Acute Distress - Head Exam Head Exam: ATRAUMATIC, NORMAL INSPECTION - Respiratory Exam Respiratory Exam: NORMAL BREATHING PATTERN. absent: Respiratory Distress - Cardiovascular Exam Cardiovascular Exam: Tachycardia, +S1, +S2 - GI/Abdominal Exam GI & Abdominal Exam: Soft, Tenderness (mild tenderness in RLQ and LLQ). absent : Firm, Guarding, Rigid, Rebound Additional comments: Steri strips in place - Neurological Exam Neurological Exam: Alert, Awake, Oriented x3 - Psychiatric Exam Psychiatric exam: Normal Affect, Normal Mood - Skin Skin Exam: Dry, Normal Color, Warm Assessment and Plan - Assessment and Plan (Free Text) Assessment: 31yo F with acute appendicitis s/p laparoscopic appendectomy POD#4 - Afebrile past 24 hours, mild tachycardic - Leukocytosis remains with WBC 14.1 today - Hypokalemia replaced - C diff sent due to multiple episodes of diarrhea - Path: acute focally necrotic appendicitis with rupture and periappendicitis w / fecalith - Continue IV Abx likely throughout weekend or until WBC normalizes - Discussed plan with and examined patient with Dr. John Pepe PGY-2
[2016-08-28] MEDS: Oxycodone/Acetaminophen 5/325 mg Tab PO PRN ×2 (14:38→22:12)
[2016-08-28 20:48] VITALS: RESP 20; O2SAT 97
[2016-08-29] MEDS: Piperacillin/Tazobact 3.375 GM in Sodium Chloride 0.9% 100 ML IVPB SCH ×2 (03:51→09:17)
[2016-08-29 06:46] LABS: BASO % 0.2 % (0.0-2.0); EOS # 0.1 K/uL (0.0-0.7); HEMATOCRIT 29.8 % (34.0-47.0); LYMPH # 1.4 K/uL (1.0-4.3); LYMPH % 15.7 % (20.0-40.0); MEAN CORPUSCULAR HEMOGLOBIN 28.2 pg (27.0-31.0); MEAN CORPUSCULAR HGB CONC 33.6 g/dL (33.0-37.0); MEAN PLATELET VOLUME 7.9 fl (7.2-11.7); MONO # 0.8 K/uL (0.0-0.8); MONO % 9.6 % (0.0-10.0); NEUT # 6.4 K/uL (1.8-7.0); NEUT % 73.5 % (50.0-75.0); RED CELL DISTRIBUTION WIDTH 13.1 % (11.5-14.5); WHITE BLOOD COUNT 8.7 K/uL (4.8-10.8)
[2016-08-29 06:58] LABS: ALB/GLOB RATIO 0.8 (1.0-2.1); ALKALINE PHOSPHATASE 71 U/L (38-126); ALT/SGPT 25 U/L (9-52); AST/SGOT 21 U/L (14-36); BILIRUBIN,TOTAL 0.7 mg/dl (0.2-1.3); BLOOD UREA NITROGEN 4 mg/dl (7-17); CALCIUM 8.6 mg/dL (8.4-10.2); CARBON DIOXIDE 25 mmol/L (22-30); CHLORIDE 104 mmol/L (98-107); GFR AFRICAN-AMERICAN > 60; GLUCOSE,RANDOM 99 mg/dL (65-105); POTASSIUM 3.4 MMOL/L (3.6-5.0); SODIUM 140 mmol/l (132-148); TOTAL PROTEIN 6.6 G/DL (6.3-8.2)
[2016-08-29 08:22] VITALS: BP 113/77; PULSE 95; TEMP 99.1
--- NOTE | 2016-08-29 09:15 | CP.PCM.PN ---
Subjective - Date & Time of Evaluation Date of Evaluation: 08/29/16 Time of Evaluation: 07:00 - Subjective Subjective: GENERAL SURGERY PROGRESS NOTE FOR DR. POLLOCK Patient seen and examined at bedside. She states that her pain is better and just has some in the LLQ. She is tolerating regular diet but is not eating much because of decreased appetite. She had some nausea this AM but it has resolved. She denies vomiting. She is ambulating in the halls. She is passing flatus and had 2 more episodes of diarrhea (1 yesterday and 1 this AM). C diff is negative. Objective - Vital Signs/Intake and Output Vital Signs (last 24 hours): Temp Pulse Resp BP Pulse Ox 99.1 F 95 H 20 113/77 97 08/29/16 08:21 08/29/16 08:21 08/29/16 08:21 08/29/16 08:21 08/29/16 08:21 - Medications Medications: Current Medications Acetaminophen (Tylenol 325mg Tab) 650 mg PO Q4 PRN PRN Reason: Fever >100.4 F Last Admin: 08/26/16 16:49 Dose: 650 mg Guaifenesin (Mucinex La) 600 mg PO Q12 [facility] Last Admin: 08/28/16 21:10 Dose: Not Given Piperacillin Sod/Tazobactam (Sod 3.375 gm/ Sodium Chloride) 100 mls @ 100 mls/ hr IVPB Q6 [facility] Last Admin: 08/29/16 03:51 Dose: 100 mls/hr Ibuprofen (Motrin Tab) 600 mg PO Q6 PRN PRN Reason: Pain, moderate (4-7) Ondansetron HCl (Zofran Inj) 4 mg IVP Q6 PRN PRN Reason: Nausea/Vomiting Oxycodone/Acetaminophen (Percocet 5/325 Mg Tab) 1 tab PO Q6 PRN PRN Reason: Pain, severe (8-10) Stop: 08/31/16 09:41 Last Admin: 08/28/16 22:12 Dose: 1 tab Potassium Chloride (K-Dur 20 Meq Er Tab) 40 meq PO ONCE ONE Stop: 08/29/16 09:41 - Labs Labs: 08/29/16 05:25 08/29/16 05:25 - Constitutional Appears: Non-toxic, No Acute Distress - Head Exam Head Exam: ATRAUMATIC, NORMAL INSPECTION - Eye Exam Eye Exam: EOMI, Normal appearance - Respiratory Exam Respiratory Exam: NORMAL BREATHING PATTERN. absent: Respiratory Distress - Cardiovascular Exam Cardiovascular Exam: +S1, +S2 - GI/Abdominal Exam GI & Abdominal Exam: Soft, Tenderness (mild tenderness LLQ). absent: Distended , Firm, Guarding, Rigid, Rebound Additional comments: Steri strips in place over laparoscopic incision sites - Neurological Exam Neurological Exam: Alert, Awake, Oriented x3 - Psychiatric Exam Psychiatric exam: Normal Affect, Normal Mood - Skin Skin Exam: Dry, Normal Color, Warm Assessment and Plan - Assessment and Plan (Free Text) Assessment: 31yo F with acute appendicitis s/p laparoscopic appendectomy POD#4 - Afebrile, VSS - Leukocytosis resolved today - Hypokalemia replaced - C diff sent due to multiple episodes of diarrhea - negative - Path: acute focally necrotic appendicitis with rupture and periappendicitis w / fecalith - Clear for DC home with PO Abx and pain medication from surgical standpoint - Discussed plan with Dr. John Pepe PGY-2
[2016-08-29] MEDS: guaiFENesin 600 mg ER Tab PO SCH (09:16)
[2016-08-29] MEDS ORDERED: Potassium Chloride 20 mEq ER Tab PO ONE (09:40)
--- NOTE | 2016-08-29 10:12 | CP.PCM.DIS ---
Provider - Provider Date of Admission: 08/26/16 13:23 Attending physician: Marisa Kelley MD Time Spent in preparation of Discharge (in minutes): 30 Hospital Course - Lab Results Lab Results: Most Recent Lab Values WBC 8.7 K/uL (4.8-10.8) 08/29/16 05:25 RBC 3.55 Mil/uL (3.80-5.20) L 08/29/16 05:25 Hgb 10.0 g/dL (12.0-16.0) L 08/29/16 05:25 Hct 29.8 % (34.0-47.0) L 08/29/16 05:25 MCV 84.0 fl (81.0-99.0) 08/29/16 05:25 MCH 28.2 pg (27.0-31.0) 08/29/16 05:25 MCHC 33.6 g/dL (33.0-37.0) 08/29/16 05:25 RDW 13.1 % (11.5-14.5) 08/29/16 05:25 Plt Count 219 K/uL (130-400) 08/29/16 05:25 MPV 7.9 fl (7.2-11.7) 08/29/16 05:25 Neut % (Auto) 73.5 % (50.0-75.0) 08/29/16 05:25 Lymph % (Auto) 15.7 % (20.0-40.0) L 08/29/16 05:25 [place] % (Auto) 9.6 % (0.0-10.0) 08/29/16 05:25 Eos % (Auto) 1.0 % (0.0-4.0) 08/29/16 05:25 Baso % (Auto) 0.2 % (0.0-2.0) 08/29/16 05:25 Neut # 6.4 K/uL (1.8-7.0) 08/29/16 05:25 Lymph # 1.4 K/uL (1.0-4.3) 08/29/16 05:25 [place] # 0.8 K/uL (0.0-0.8) 08/29/16 05:25 Eos # 0.1 K/uL (0.0-0.7) 08/29/16 05:25 Baso # 0.0 K/uL (0.0-0.2) 08/29/16 05:25 Neutrophils % (Manual) 90 % (42-75) H 08/25/16 05:45 Band Neutrophils % 1 % (0-2) 08/25/16 05:45 Lymphocytes % (Manual) 1 % (20-50) L 08/25/16 05:45 Reactive Lymphs % 4 % (0-0) H 08/25/16 05:45 Monocytes % (Manual) 4 % (0-10) 08/25/16 05:45 Platelet Estimate Normal (NORMAL) 08/25/16 05:45 Hypochromasia (manual) Slight 08/25/16 05:45 Sodium 140 mmol/l (132-148) 08/29/16 05:25 Potassium 3.4 MMOL/L (3.6-5.0) L 08/29/16 05:25 Chloride 104 mmol/L (98-107) 08/29/16 05:25 Carbon Dioxide 25 mmol/L (22-30) 08/29/16 05:25 Anion Gap 14 (10-20) 08/29/16 05:25 BUN 4 mg/dl (7-17) L 08/29/16 05:25 Creatinine 0.6 mg/dL (0.7-1.2) L 08/29/16 05:25 Est GFR ( Amer) > 60 08/29/16 05:25 Est GFR (Non-Af Amer) > 60 08/29/16 05:25 Random Glucose 99 mg/dL (65-105) 08/29/16 05:25 Calcium 8.6 mg/dL (8.4-10.2) 08/29/16 05:25 Magnesium 2.0 MG/DL (1.6-2.3) 08/28/16 09:38 Total Bilirubin 0.7 mg/dl (0.2-1.3) 08/29/16 05:25 AST 21 U/L (14-36) 08/29/16 05:25 ALT 25 U/L (9-52) 08/29/16 05:25 Alkaline Phosphatase 71 U/L (38-126) 08/29/16 05:25 Total Protein 6.6 G/DL (6.3-8.2) 08/29/16 05:25 Albumin 3.0 g/dL (3.5-5.0) L 08/29/16 05:25 Globulin 3.6 gm/dL (2.2-3.9) 08/29/16 05:25 Albumin/Globulin Ratio 0.8 (1.0-2.1) L 08/29/16 05:25 Lipase 79 U/L (23-300) 08/24/16 20:36 Urine Color Yellow (YELLOW) 08/24/16 20:36 Urine Clarity Slighty-cloudy (Clear) 08/24/16 20:36 Urine pH 7.0 (5.0-8.0) 08/24/16 20:36 Ur Specific [place] 1.032 (1.003-1.030) H 08/24/16 20:36 Urine Protein 100 mg/dL (NEGATIVE) 08/24/16 20:36 Urine Glucose (UA) Neg mg/dL (Normal) 08/24/16 20:36 Urine Ketones 80 mg/dL (NEGATIVE) 08/24/16 20:36 Urine Blood Small (NEGATIVE) 08/24/16 20:36 Urine Nitrate Negative (NEGATIVE) 08/24/16 20:36 Urine Bilirubin Negative (NEGATIVE) 08/24/16 20:36 Urine Urobilinogen 0.2-1.0 mg/dL (0.2-1.0) 08/24/16 20:36 Ur Leukocyte Esterase Neg [place]/uL (Negative) 08/24/16 20:36 Urine RBC (Auto) 4 /hpf (0-3) H 08/24/16 20:36 Urine Microscopic WBC 3 /hpf (0-5) 08/24/16 20:36 Ur Squamous Epith Cells 10 /hpf (0-5) H 08/24/16 20:36 Urine Bacteria Rare (<OCC) 08/24/16 20:36 C. difficile Ag & Toxin Negative (NEGATIVE) 08/28/16 16:28 - Hospital Course Hospital Course: 31F no PMH initially presented with abdominal pain and diagnosed with acute appendicitis. Patient underwent lap appendectomy. POD 2, patient febrile, continued to be on antibiotics. POD 3, afebrile 24H, WBC 14.1. Pt continues to have diarrhea. POD 4 patient feeling better no wbc afebrile. diarrhea improving 1.Acute appendicitis s/p appendectomy POD 4 afebrile for 24 hours. WBC resolved CDIFF NEG ok for dc from surgical standpoint with abx; augmentin. Pt was on IV Zosyn IV and pain management Pain meds adjusted to Percocet and motrin as patient states pain is more during episodes of diarrhea Surgery on consult and following Strongly encouraged ambulation Continue regular diet Discharge Exam - Head Exam Head Exam: ATRAUMATIC, NORMAL INSPECTION, NORMOCEPHALIC - Eye Exam Eye Exam: Normal appearance, PERRL Pupil Exam: NORMAL ACCOMODATION - ENT Exam ENT Exam: Mucous Membranes Moist, Normal Oropharynx - Neck Exam Neck exam: Full Rom, Normal Inspection - Respiratory Exam Respiratory Exam: Clear to PA & Lateral, NORMAL BREATHING PATTERN - Cardiovascular Exam Cardiovascular Exam: RRR, +S1, +S2 - GI/Abdominal Exam GI & Abdominal Exam: Normal Bowel Sounds, Soft. absent: Mass, Organomegaly, Tenderness - Extremities Exam Extremities exam: normal capillary refill, pedal pulses present - Back Exam Back exam: absent: CVA tenderness (L), CVA tenderness (R) - Neurological Exam Neurological exam: Alert, Oriented x3 - Psychiatric Exam Psychiatric exam: Normal Affect, Normal Mood - Skin Skin Exam: Dry, Warm Discharge Plan - Discharge Medications Prescriptions: Amoxicillin/Clavulanate [Augmentin 875 MG-125 MG] 1 tab PO Q12 #20 tab - Follow Up Plan Condition: STABLE Disposition: HOME/ ROUTINE Additional Instructions: - FOLLOW UP PCP IN ONE WEEK - FOLLOW UP WITH SURGERY WITHIN 7-10 DAYS - ANTIBIOTICS: AUGEMENTIN EVERY 12 HOURS WITH FOOD FOR 10 DAYS - PAIN CONTROL WITH TYLENOL AND MOTRIN - MAY TAKE IMODIUM FOR DIARRHEA - RESUME REGULAR DIET - RESUME ACTIVITY TOLERATED - RETURN TO ER FOR RECURRENT, WORSENING, OR NEW SYMPTOMS.
== END 2016-08-29 13:14 | disposition home or self-care (01) | DRG 340 ==
LOC: H.ER 19:57 → H.EROBSV 21:38 → H.ERHOLD 08-25 02:26 → H.MEDSURG1 08-25 03:11 → OBSVTOIN 08-26 13:23
PROVIDERS: ADMIT Internal Medicine; ATTEND Internal Medicine
PROC: 0DTJ4ZZ Resection of Appendix, Percutaneous Endoscopic Approach (ICD-10-PCS; principal; 2016-08-26)
DX: K35.2 Acute appendicitis with generalized peritonitis (principal); E87.6 Hypokalemia; R19.7 Diarrhea, unspecified; K38.1 Appendicular concretions

== ENCOUNTER 2016-10-14 10:44 | Observation (INO) | payer BC ==
[2016-10-14 10:49] VITALS: BMI 20.4
[2016-10-14] MEDS ORDERED: Sodium Chloride 0.9% 1,000 ML IV STA (11:10)
[2016-10-14] MEDS ORDERED: Iohexol 240 (50 ml) PO ONE (11:11)
--- NOTE | 2016-10-14 11:16 | ED PDOC ---
HPI: Abdomen Time Seen by Provider: 10/14/16 10:56 Chief Complaint (Nursing): GI Problem Chief Complaint (Provider): Abd pain History Per: Patient History/Exam Limitations: no limitations Onset/Duration Of Symptoms: Days (3 weeks) Additional Complaint(s): Pt. with abd pain all over for 3 weeks constant. Had surgery for appendix removal 1.5 months ago[address] Pt. saw Dr. Lopez and was told to get a ct which has not been done yet. She saw her OBGYN because of vaginal dc and had an US which showed nothing. [facility] gave her antibiotics to take and took it for a few days and stopped after Dr. Lopez told her not to take it anymore. 1.5 months of dysuria, freq urination and urgency. For 2-3 days has had diarrhea, vomit, nonbloody. Past Medical History Reviewed: Nursing Documentation, Vital Signs Vital Signs: Last Vital Signs Temp 99 F 10/14/16 10:49 Pulse 90 10/14/16 10:49 Resp BP 109/70 10/14/16 10:49 Pulse Ox 97 10/14/16 11:28 - Medical History PMH: Hyperthyroidism Denies: Chronic Kidney Disease - Surgical History Surgical History: Appendectomy - Family History Family History: States: Unknown Family Hx - Living Arrangements Living Arrangements: With Family - Social History Current smoker - smoking cessation education provided: No Alcohol: None Drugs: Denies - Home Medications Home Medications: Ambulatory Orders Medication Instructions Recorded Amoxicillin/Clavulanate [Augmentin 1 tab PO Q12 #20 tab 08/29/16 875 MG-125 MG] Ibuprofen [Motrin Tab] 600 mg PO Q6 PRN tab 08/29/16 - Allergies Allergies/Adverse Reactions: Allergies Allergy/AdvReac Type Severity Reaction Status Date / Time No Known Allergies Allergy Verified 06/01/14 11:41 Review of Systems ROS Statement: Except As Marked, All Systems Reviewed And Found Negative Gastrointestinal: Positive for: Nausea, Vomiting, Abdominal Pain, Diarrhea Genitourinary Female: Positive for: Dysuria, Frequency, Vaginal Discharge Physical Exam - Reviewed Nursing Documentation Reviewed: Yes Vital Signs Reviewed: Yes - Physical Exam Appears: Positive for: Non-toxic, No Acute Distress Head Exam: Positive for: ATRAUMATIC, NORMAL INSPECTION, NORMOCEPHALIC Skin: Positive for: Normal Color, Warm, DRY Eye Exam: Positive for: EOMI, Normal appearance, PERRL ENT: Positive for: Normal ENT Inspection Neck: Positive for: Normal, Painless ROM Cardiovascular/Chest: Positive for: Regular Rate, Rhythm Respiratory: Positive for: CNT, Normal Breath Sounds Gastrointestinal/Abdominal: Positive for: Bowel Sounds, Soft, Tenderness (mild diffuse). Negative for: Distended, Guarding Pelvic Exam: Positive for: External Exam Normal. Negative for: Speculum Exam Normal (trace white dc; cervix with no erythema or tenderness), Active Bleeding , Tender Adnexa Back: Positive for: Normal Inspection. Negative for: L CVA Tenderness, R CVA Tenderness Extremity: Positive for: Normal ROM Neurologic/Psych: Positive for: Alert, Oriented - Laboratory Results Result Diagrams: 10/14/16 11:35 10/14/16 11:35 Interpretation Of Abn Labs: 12.8 wbc; urine wbc - ECG O2 Sat by Pulse Oximetry: 97 - Progress ED Course And Treament: 1505: Dr. Fox to take over care. FU Ct. ED OBSERVATION Date of observation admission: 10/14/16 Time of observation admission: 11:28 - Observation admission statement Patient is being placed in observation because:: abd pain eval - Goals of Observation Goals of observation are:: CT and labs; tx for symptoms. Disposition - Clinical Impression Clinical Impression: Abdominal pain, UTI (urinary tract infection) - Patient ED Disposition Is Patient to be Admitted: Transfer of Care - Disposition Disposition: Transfer of Care Disposition Time: 15:05 Condition: STABLE Patient Signed Over To: Roxann Fox
[2016-10-14 11:47] LABS: ALKALINE PHOSPHATASE 80 U/L (38-126); ALT/SGPT 25 U/L (9-52); AST/SGOT 18 U/L (14-36); BILIRUBIN,TOTAL 0.7 mg/dl (0.2-1.3); BLOOD UREA NITROGEN 7 mg/dl (7-17); CALCIUM 9.6 mg/dL (8.4-10.2); CARBON DIOXIDE 26 mmol/L (22-30); CHLORIDE 103 mmol/L (98-107); GFR AFRICAN-AMERICAN > 60; GLUCOSE,RANDOM 100 mg/dL (65-105); LIPASE 43 U/L (23-300); POTASSIUM 3.8 MMOL/L (3.6-5.0); SODIUM 143 mmol/l (132-148); TOTAL PROTEIN 9.4 G/DL (6.3-8.2)
[2016-10-14 11:58] LABS: BASO % 0.2 % (0.0-2.0); EOS % 0.3 % (0.0-4.0); HEMATOCRIT 35.5 % (34.0-47.0); LYMPH # 1.5 K/uL (1.0-4.3); LYMPH % 11.6 % (20.0-40.0); MEAN CELL VOLUME 80.5 fl (81.0-99.0); MEAN CORPUSCULAR HEMOGLOBIN 26.1 pg (27.0-31.0); MEAN CORPUSCULAR HGB CONC 32.4 g/dL (33.0-37.0); MEAN PLATELET VOLUME 8.8 fl (7.2-11.7); MONO # 0.6 K/uL (0.0-0.8); MONO % 4.5 % (0.0-10.0); NEUT # 10.7 K/uL (1.8-7.0); NEUT % 83.4 % (50.0-75.0); RED CELL DISTRIBUTION WIDTH 13.1 % (11.5-14.5); WHITE BLOOD COUNT 12.8 K/uL (4.8-10.8)
[2016-10-14 12:53] LABS: RBC URINE 15 /hpf (0-3); URINE BILIRUBIN NEGATIVE (NEGATIVE); URINE BLOOD NEGATIVE (NEGATIVE); URINE COLOR YELLOW (YELLOW); URINE GLUCOSE (UA) NEG (Normal); URINE KETONE 80 mg/dL (NEGATIVE); URINE LEUKOCYTE ESTERASE MOD Leu/uL (Negative); URINE PROTEIN 100 mg/dL (NEGATIVE); URINE UROBILINOGEN 0.2-1.0 mg/dL (0.2-1.0); WBC URINE 208 /hpf (0-5)
--- NOTE | 2016-10-14 15:28 | ED PDOC ---
- Laboratory Results Result Diagrams: 10/14/16 11:35 10/14/16 11:35 - ECG O2 Sat by Pulse Oximetry: 97 - Physician Consult Information Physician Contacted: Marco Casiano Outcome Of Conversation: Covering for Dr. Lopez, will consult. Medical Decision Making Medical Decision Making: Accession No. : [id number] Patient Name / ID : KALYANI PENALOZA / [id number] Exam Date : 10/14/2016 14:35:23 ( Approved ) Study Comment : Sex / Age : F / 31Y Creator : Tania Tirado MD Dictator : Tania Tirado MD Marketing Operations Associate : Major Account Manager : Tania Tirado MD Approver2 : Report Date : 10/14/2016 15:34:04 My Comment : PROCEDURE: CT Abdomen and Pelvis with oral and IV contrast. HISTORY: abd pain COMPARISON: CT abdomen and pelvis with contrast performed 08/25/16 TECHNIQUE: Contiguous axial images of the abdomen and pelvis. Oral and IV contrast was administered. Coronal and Sagittal reformats generated and reviewed. Contrast dose: 95 mL Omnipaque 300 Radiation dose: Total exam DLP = 439.12 mGy-cm. This CT exam was performed using one or more of the following dose reduction techniques: Automated exposure control, adjustment of the mA and/or kV according to patient size, and/or use of iterative reconstruction technique. FINDINGS: LOWER THORAX: No visible consolidation, pleural effusion, or pneumothorax. LIVER: Unremarkable. GALLBLADDER AND BILE DUCTS: Unremarkable. PANCREAS: Unremarkable. SPLEEN: Unremarkable. ADRENALS: Unremarkable. KIDNEYS AND URETERS: The kidneys enhance symmetrically. No hydronephrosis or obstructing renal calculus. BLADDER: Mildly thick-walled under distended urinary bladder ; correlate with urinalysis to exclude possibility of cystitis. REPRODUCTIVE: Uterus is present. Bilateral probable ovarian cysts. APPENDIX: Interval appendectomy. BOWEL: The stomach is nondistended. No evidence of bowel obstruction. Extensive mucosal thickening involving the proximal right colon particularly involving the cecum as well as the rectosigmoid colon and left colon extending to the splenic flexure. Correlate clinically for colitis (i.e. infectious, inflammatory, ischemic). High density curvilinear material noted near the base of the cecum and in the right pelvis presumably related to interval appendectomy. Correlate with surgical history. PERITONEUM: No significant free fluid. No definite free air. LYMPH NODES: Prominent mesenteric and retroperitoneal lymph nodes, nonspecific. VASCULATURE: No aortic aneurysm. BONES: No acute osseous abnormality is detected. OTHER FINDINGS: None. IMPRESSION: Extensive mucosal thickening involving the proximal right colon particularly involving the cecum as well as the rectosigmoid colon and left colon extending to the splenic flexure. Correlate clinically for colitis (i.e. infectious, inflammatory, ischemic). High density curvilinear material noted near the base of the cecum and in the right pelvis presumably related to interval appendectomy. Correlate with surgical history. Mildly thick-walled under distended urinary bladder ; correlate with urinalysis to exclude possibility of cystitis. Prominent mesenteric and retroperitoneal lymph nodes, nonspecific. Additional findings as above. Disposition - Clinical Impression Clinical Impression: UTI (urinary tract infection), Colitis - POA Present On Arrival: None - Disposition Disposition: Hospitalized as Observation Patient Disposition Time: 16:24 Condition: STABLE Addendum Addendum: 10/14/16 15:00 Pt signed out by Dr. Rodriguez pending CT.
--- NOTE | 2016-10-14 15:35 | CT ---
PROCEDURE: CT Abdomen and Pelvis with oral and IV contrast. HISTORY: abd pain COMPARISON: CT abdomen and pelvis with contrast performed 08/25/16 TECHNIQUE: Contiguous axial images of the abdomen and pelvis. Oral and IV contrast was administered. Coronal and Sagittal reformats generated and reviewed. Contrast dose: 95 mL Omnipaque 300 Radiation dose: Total exam DLP = 439.12 mGy-cm. This CT exam was performed using one or more of the following dose reduction techniques: Automated exposure control, adjustment of the mA and/or kV according to patient size, and/or use of iterative reconstruction technique. FINDINGS: LOWER THORAX: No visible consolidation, pleural effusion, or pneumothorax. LIVER: Unremarkable. GALLBLADDER AND BILE DUCTS: Unremarkable. PANCREAS: Unremarkable. SPLEEN: Unremarkable. ADRENALS: Unremarkable. KIDNEYS AND URETERS: The kidneys enhance symmetrically. No hydronephrosis or obstructing renal calculus. BLADDER: Mildly thick-walled under distended urinary bladder ; correlate with urinalysis to exclude possibility of cystitis. REPRODUCTIVE: Uterus is present. Bilateral probable ovarian cysts. APPENDIX: Interval appendectomy. BOWEL: The stomach is nondistended. No evidence of bowel obstruction. Extensive mucosal thickening involving the proximal right colon particularly involving the cecum as well as the rectosigmoid colon and left colon extending to the splenic flexure. Correlate clinically for colitis (i.e. infectious, inflammatory, ischemic). High density curvilinear material noted near the base of the cecum and in the right pelvis presumably related to interval appendectomy. Correlate with surgical history. PERITONEUM: No significant free fluid. No definite free air. LYMPH NODES: Prominent mesenteric and retroperitoneal lymph nodes, nonspecific. VASCULATURE: No aortic aneurysm. BONES: No acute osseous abnormality is detected. OTHER FINDINGS: None. IMPRESSION: Extensive mucosal thickening involving the proximal right colon particularly involving the cecum as well as the rectosigmoid colon and left colon extending to the splenic flexure. Correlate clinically for colitis (i.e. infectious, inflammatory, ischemic). High density curvilinear material noted near the base of the cecum and in the right pelvis presumably related to interval appendectomy. Correlate with surgical history. Mildly thick-walled under distended urinary bladder ; correlate with urinalysis to exclude possibility of cystitis. Prominent mesenteric and retroperitoneal lymph nodes, nonspecific. Additional findings as above.
[2016-10-14] MEDS ORDERED: Ciprofloxacin 400mg/200ml D5W 400 MG/200 ML BAG IV STA (16:18)
[2016-10-14] MEDS ORDERED: metroNIDAZOLE 500mg/100ml NS 100 ML IV STA (16:18)
--- NOTE | 2016-10-14 18:32 | CP.PCM.HP ---
History of Present Illness - History of Present Illness History of Present Illness: CC: Abdominal pain. 31 y/o F, came to ER [facility] for Abdominal pain, onset 2 days [employer] with no relief. Pt S/P Lap appendectomy on 08/25/16, c/o of intermittent abdominal pain lower quadrants, suprapubic area for 1 1/2 week, increased 2 days [employer] ST[employer], pain was moderate to severe intensity 6:10, aching, cramping, associated to n/v/d. Worsening symptoms: Urinary urgency, painful urination with burning sensation, vaginal discharged. As per PT, she went to see Dr. Hernandez, Surgeon, and he refer her to hospital for evaluated and Tx. Pt denied: Fever, chills, CP, SOB, cough, dizziness, syncope, sick contact, recent travel. PMHx: S/P Lap Appendectomy 2nd to perforated appendicitis on 08/25/16, Hx Hypothyroidism, Kidneys infection. Abd/Pelv CT showed: Colitis. Present on Admission - Present on Admission Any Indicators Present on Admission: No Review of Systems - Constitutional Constitutional: Other (negative) - EENT Eyes: Other (negative) Ears: Other (negative) Nose/Mouth/Throat: Other (negative) - Cardiovascular Cardiovascular: Other (negative) - Respiratory Respiratory: Other (negative) - Gastrointestinal Gastrointestinal: Abdominal Pain, Cramping, Diarrhea, Nausea, Vomiting - Genitourinary Genitourinary: Dysuria, Urinary Urgency - Menstruation Menstruation: Other (negative) - Musculoskeletal Musculoskeletal: Other (negative) - Integumentary Integumentary: Other (negative) - Neurological Neurological: Other (negative) - Psychiatric Psychiatric: Other (negative) - Endocrine Endocrine: Other (negative) - Hematologic/Lymphatic Hematologic: Other (negative) Past Patient History - Past Medical History & Family History Past Medical History?: Yes Pertinent Family History: Unknown. - Past Social History Smoking Status: Never Smoked Alcohol: None Drugs: Denies Home Situation {Lives}: With Family - CARDIAC Hx Cardiac Disorders: No - PULMONARY Hx Respiratory Disorders: No - NEUROLOGICAL Hx Neurological Disorder: No - HEENT Hx HEENT Problems: No - RENAL Hx Chronic Kidney Disease: No - ENDOCRINE/METABOLIC Hx Endocrine Disorders: Yes Hx Hypothyroidism: Yes - HEMATOLOGICAL/ONCOLOGICAL Hx Blood Disorders: No - INTEGUMENTARY Hx Dermatological Problems: No - MUSCULOSKELETAL/RHEUMATOLOGICAL Hx Musculoskeletal Disorders: No - GASTROINTESTINAL Hx Gastrointestinal Disorders: No - GENITOURINARY/GYNECOLOGICAL Hx Genitourinary Disorders: No - PSYCHIATRIC Hx Psychophysiologic Disorder: No - SURGICAL HISTORY Hx Surgeries: Yes Hx Appendectomy: Yes - ANESTHESIA Hx Anesthesia: Yes Hx Anesthesia Reactions: No Hx Malignant Hyperthermia: No Meds Home Medications: Home Medication List Medication Instructions Recorded Confirmed Type Ciprofloxacin HCl [Cipro] 500 mg PO BID #20 tablet 10/15/16 Rx Allergies/Adverse Reactions: Allergies Allergy/AdvReac Type Severity Reaction Status Date / Time No Known Allergies Allergy Verified 06/01/14 11:41 Physical Exam - Constitutional Appears: No Acute Distress - Head Exam Head Exam: NORMAL INSPECTION - Eye Exam Eye Exam: PERRL - ENT Exam ENT Exam: Normal Oropharynx - Neck Exam Neck exam: Positive for: Normal Inspection - Respiratory Exam Respiratory Exam: NORMAL BREATHING PATTERN - Cardiovascular Exam Cardiovascular Exam: REGULAR RHYTHM - GI/Abdominal Exam GI & Abdominal Exam: Normal Bowel Sounds, Soft, Tenderness (mild tenderness LLQ. ). absent: Guarding, Rebound - Extremities Exam Extremities exam: Positive for: normal inspection - Back Exam Back exam: NORMAL INSPECTION - Neurological Exam Neurological exam: Alert, Oriented x3 Additional comments: No motor sensory deficit. - Psychiatric Exam Psychiatric exam: Normal Mood - Skin Skin Exam: Normal Color, Warm Results - Vital Signs Recent Vital Signs: Last Vital Signs Temp 98.4 F 10/14/16 17:43 Pulse 85 10/14/16 17:43 Resp 18 10/14/16 17:43 BP 101/68 10/14/16 17:43 Pulse Ox 97 10/14/16 17:43 reviewed J.Tomasz - Labs Result Diagrams: 10/15/16 07:30 10/15/16 07:30 Labs: Laboratory Results - last 24 hr 10/14/16 10/14/16 10/14/16 11:35 11:35 12:40 WBC 12.8 H RBC 4.41 Hgb 11.5 L Hct 35.5 MCV 80.5 L D MCH 26.1 L MCHC 32.4 L RDW 13.1 Plt Count 288 MPV 8.8 Neut % (Auto) 83.4 H Lymph % (Auto) 11.6 L Edwards % (Auto) 4.5 Eos % (Auto) 0.3 Baso % (Auto) 0.2 Neut # 10.7 H Lymph # 1.5 Edwards # 0.6 Eos # 0.0 Baso # 0.0 Sodium 143 Potassium 3.8 Chloride 103 Carbon Dioxide 26 Anion Gap 18 BUN 7 Creatinine 0.5 L Est GFR ( Amer) > 60 Est GFR (Non-Af Amer) > 60 Random Glucose 100 Calcium 9.6 Total Bilirubin 0.7 AST 18 ALT 25 Alkaline Phosphatase 80 Total Protein 9.4 H Albumin 4.7 Globulin 4.7 H Albumin/Globulin Ratio 1.0 Lipase 43 Urine Color Yellow Urine Clarity Cloudy Urine pH 6.0 Ur Specific Bolton 1.021 Urine Protein 100 Urine Glucose (UA) Neg Urine Ketones 80 Urine Blood Negative Urine Nitrate Negative Urine Bilirubin Negative Urine Urobilinogen 0.2-1.0 Ur Leukocyte Esterase Mod Urine RBC (Auto) 15 H Urine Microscopic WBC 208 H reviewed J.P. - Imaging and Cardiology CT scan - abdomen Status: Report reviewed by me (Cassi.) CT scan - pelvis Status: Report reviewed by me (Ryley) Assessment & Plan (1) Abdominal pain Status: Acute Priority: High (2) Colitis Status: Acute Priority: High (3) UTI (urinary tract infection) Status: Acute Priority: High (4) S/P appendectomy Status: Acute Priority: High - Assessment and Plan (Free Text) Plan: Blood C-S, U C-S, Zosyn, Toradol and rest of Tx, Surgeon consult. - Date & Time Date: 10/14/16 Time: 15:30
--- NOTE | 2016-10-14 18:49 | CP.PCM.CON ---
<EfrenYuly - Last Filed: 10/14/16 18:42> History of Present Illness - History of Present Illness History of Present Illness: General Surgery - Dr. Lopez 31F w/ hx perforated appendicitis s/p lap appendectomy on 08/25/2016, presents to ER today w/ progressively worsening lower abdominal pain and diarrhea. Pt states she initially felt better after the surgery, but a few weeks ago began developing left lower abdominal pain, cramping/intermittent, with associated symptoms including diarrhea, dysuria, vaginal discharge, and chills. She feels that most of these symptoms developed approx 1 week after the surgery and have persisted. Pt states she saw her SUPERVISOR [employer] MACHINE in office a few weeks ago, they told her the sx may be d/t fibroids and did an u/s which was unremarkable. The last few days pt states the pains became worse and she began feeling nauseous, unable to tolerate much PO and vomited 1x yesterday. PMH: Hyperthyroid, Perforated appendicitis PSH: Lap Appendectomy NKDA Labs in the ED significant for WBC of 12.8, +UTI. A CT Abdomen pelvis was done which showed extensive mucosal thickening of the cecum, Left and Rectosigmoid colon, as well as mild thickening of the bladder wall. Review of Systems - Review of Systems All systems: reviewed and no additional remarkable complaints except (as per HPI ) Past Patient History - Past Medical History & Family History Past Medical History?: Yes - Past Social History Alcohol: None Drugs: Denies - CARDIAC Hx Cardiac Disorders: No - PULMONARY Hx Respiratory Disorders: No - NEUROLOGICAL Hx Neurological Disorder: No - HEENT Hx HEENT Problems: No - RENAL Hx Chronic Kidney Disease: No - ENDOCRINE/METABOLIC Hx Endocrine Disorders: Yes - HEMATOLOGICAL/ONCOLOGICAL Hx Blood Disorders: No - INTEGUMENTARY Hx Dermatological Problems: No - MUSCULOSKELETAL/RHEUMATOLOGICAL Hx Musculoskeletal Disorders: No - GASTROINTESTINAL Hx Gastrointestinal Disorders: No - GENITOURINARY/GYNECOLOGICAL Hx Genitourinary Disorders: No - PSYCHIATRIC Hx Psychophysiologic Disorder: No - SURGICAL HISTORY Hx Appendectomy: Yes - ANESTHESIA Hx Anesthesia: No Hx Anesthesia Reactions: No Hx Malignant Hyperthermia: No Meds Allergies/Adverse Reactions: Allergies Allergy/AdvReac Type Severity Reaction Status Date / Time No Known Allergies Allergy Verified 06/01/14 11:41 - Medications Medications: Current Medications Potassium Chloride 20 meq/ (Sodium Chloride) 1,010 mls @ 100 mls/hr IV .Q10H6M [facility] Stop: 10/15/16 17:20 Piperacillin Sod/Tazobactam (Sod 3.375 gm/ Sodium Chloride) 100 mls @ 100 mls/ hr IVPB Q6 [facility] Ketorolac Tromethamine (Toradol) 30 mg IVP Q6 PRN PRN Reason: Pain, moderate (4-7) Ondansetron HCl (Zofran Inj) 4 mg IVP Q4 PRN PRN Reason: Nausea/Vomiting Physical Exam - Constitutional Appears: No Acute Distress - Head Exam Head Exam: ATRAUMATIC, NORMAL INSPECTION, NORMOCEPHALIC - Eye Exam Eye Exam: Normal appearance Pupil Exam: NORMAL ACCOMODATION - ENT Exam ENT Exam: Mucous Membranes Dry - Respiratory Exam Respiratory Exam: NORMAL BREATHING PATTERN. absent: Respiratory Distress - Cardiovascular Exam Cardiovascular Exam: REGULAR RHYTHM - GI/Abdominal Exam GI & Abdominal Exam: Guarding, Soft, Tenderness (LLQ and Suprapubic). absent: Distended, Firm, Rebound, Rigid - Neurological Exam Neurological exam: Alert, Oriented x3 - Psychiatric Exam Psychiatric exam: Normal Affect, Normal Mood - Skin Skin Exam: Dry, Intact Results - Vital Signs Recent Vital Signs: Last Vital Signs Temp 98.4 F 10/14/16 17:43 Pulse 85 10/14/16 17:43 Resp 18 10/14/16 17:43 BP 101/68 10/14/16 17:43 Pulse Ox 97 10/14/16 17:43 - Labs Result Diagrams: 10/14/16 11:35 10/14/16 11:35 Labs: Laboratory Results - last 24 hr 10/14/16 10/14/16 10/14/16 11:35 11:35 12:40 WBC 12.8 H RBC 4.41 Hgb 11.5 L Hct 35.5 MCV 80.5 L D MCH 26.1 L MCHC 32.4 L RDW 13.1 Plt Count 288 MPV 8.8 Neut % (Auto) 83.4 H Lymph % (Auto) 11.6 L Sac % (Auto) 4.5 Eos % (Auto) 0.3 Baso % (Auto) 0.2 Neut # 10.7 H Lymph # 1.5 Sac # 0.6 Eos # 0.0 Baso # 0.0 Sodium 143 Potassium 3.8 Chloride 103 Carbon Dioxide 26 Anion Gap 18 BUN 7 Creatinine 0.5 L Est GFR ( Amer) > 60 Est GFR (Non-Af Amer) > 60 Random Glucose 100 Calcium 9.6 Total Bilirubin 0.7 AST 18 ALT 25 Alkaline Phosphatase 80 Total Protein 9.4 H Albumin 4.7 Globulin 4.7 H Albumin/Globulin Ratio 1.0 Lipase 43 Urine Color Yellow Urine Clarity Cloudy Urine pH 6.0 Ur Specific Henderson 1.021 Urine Protein 100 Urine Glucose (UA) Neg Urine Ketones 80 Urine Blood Negative Urine Nitrate Negative Urine Bilirubin Negative Urine Urobilinogen 0.2-1.0 Ur Leukocyte Esterase Mod Urine RBC (Auto) 15 H Urine Microscopic WBC 208 H - Imaging and Cardiology CT scan - abdomen Status: Image reviewed by me, Report reviewed by me Assessment & Plan - Assessment and Plan (Free Text) Assessment: 31yo F w/ colitis and UTI s/p Lap appendectomy for perforated appendicitis (2016) -Continue clear liquid diet, if pain worsens then NPO -IVF -IV Abx -Pain control and anti-emetics -Consider [employer] eval. -No surgical intervention DW Dr. John Schwartz PGY2 <Erick James - Last Filed: 10/15/16 10:36> History of Present Illness - History of Present Illness History of Present Illness: Patient was seen and examined at the bedside. Agree with resident's note above Meds - Medications Medications: Current Medications Potassium Chloride 20 meq/ (Sodium Chloride) 1,010 mls @ 100 mls/hr IV .Q10H6M [facility] Stop: 10/15/16 17:20 Last Admin: 10/14/16 20:43 Dose: 100 mls/hr Piperacillin Sod/Tazobactam (Sod 3.375 gm/ Sodium Chloride) 100 mls @ 100 mls/ hr IVPB Q6 [facility] Last Admin: 10/15/16 03:30 Dose: 100 mls/hr Ketorolac Tromethamine (Toradol) 30 mg IVP Q6 PRN PRN Reason: Pain, moderate (4-7) Ondansetron HCl (Zofran Inj) 4 mg IVP Q4 PRN PRN Reason: Nausea/Vomiting Results - Vital Signs Recent Vital Signs: Last Vital Signs Temp 98.4 F 10/15/16 09:28 Pulse 77 10/15/16 09:28 Resp 20 10/15/16 09:28 BP 106/72 10/15/16 09:28 Pulse Ox 96 10/15/16 09:28 - Labs Result Diagrams: 10/15/16 07:30 10/15/16 07:30 Labs: Laboratory Results - last 24 hr 10/14/16 10/14/16 10/14/16 11:35 11:35 12:40 WBC 12.8 H RBC 4.41 Hgb 11.5 L Hct 35.5 MCV 80.5 L D MCH 26.1 L MCHC 32.4 L RDW 13.1 Plt Count 288 MPV 8.8 Neut % (Auto) 83.4 H Lymph % (Auto) 11.6 L Sac % (Auto) 4.5 Eos % (Auto) 0.3 Baso % (Auto) 0.2 Neut # 10.7 H Lymph # 1.5 Sac # 0.6 Eos # 0.0 Baso # 0.0 Sodium 143 Potassium 3.8 Chloride 103 Carbon Dioxide 26 Anion Gap 18 BUN 7 Creatinine 0.5 L Est GFR ( Amer) > 60 Est GFR (Non-Af Amer) > 60 Random Glucose 100 Calcium 9.6 Total Bilirubin 0.7 AST 18 ALT 25 Alkaline Phosphatase 80 Total Protein 9.4 H Albumin 4.7 Globulin 4.7 H Albumin/Globulin Ratio 1.0 Lipase 43 Urine Color Yellow Urine Clarity Cloudy Urine pH 6.0 Ur Specific Henderson 1.021 Urine Protein 100 Urine Glucose (UA) Neg Urine Ketones 80 Urine Blood Negative Urine Nitrate Negative Urine Bilirubin Negative Urine Urobilinogen 0.2-1.0 Ur Leukocyte Esterase Mod Urine RBC (Auto) 15 H Urine Microscopic WBC 208 H 10/15/16 10/15/16 07:30 07:30 WBC 7.5 RBC 3.70 L Hgb 9.7 L Hct 30.4 L MCV 82.3 MCH 26.3 L MCHC 32.0 L RDW 12.9 Plt Count 229 MPV 8.2 Neut % (Auto) 74.3 Lymph % (Auto) 17.6 L Sac % (Auto) 6.6 Eos % (Auto) 1.2 Baso % (Auto) 0.3 Neut # 5.6 Lymph # 1.3 Sac # 0.5 Eos # 0.1 Baso # 0.0 Sodium 144 Potassium 3.7 Chloride 108 H Carbon Dioxide 24 Anion Gap 16 BUN 4 L Creatinine 0.7 Est GFR ( Amer) > 60 Est GFR (Non-Af Amer) > 60 Random Glucose 89 Calcium 8.5 Total Bilirubin 0.5 AST 14 D ALT 30 Alkaline Phosphatase 56 Total Protein 7.1 Albumin 3.6 Globulin 3.5 Albumin/Globulin Ratio 1.1 Lipase Urine Color Urine Clarity Urine pH Ur Specific Henderson Urine Protein Urine Glucose (UA) Urine Ketones Urine Blood Urine Nitrate Urine Bilirubin Urine Urobilinogen Ur Leukocyte Esterase Urine RBC (Auto) Urine Microscopic WBC
[2016-10-14] MEDS: Piperacillin/Tazobact 3.375 GM in Sodium Chloride 0.9% 100 ML IVPB SCH (21:25)
[2016-10-15] MEDS: Piperacillin/Tazobact 3.375 GM in Sodium Chloride 0.9% 100 ML IVPB SCH ×3 (03:30→17:31)
[2016-10-15 07:44] LABS: BASO % 0.3 % (0.0-2.0); EOS # 0.1 K/uL (0.0-0.7); EOS % 1.2 % (0.0-4.0); HEMATOCRIT 30.4 % (34.0-47.0); LYMPH # 1.3 K/uL (1.0-4.3); LYMPH % 17.6 % (20.0-40.0); MEAN CELL VOLUME 82.3 fl (81.0-99.0); MEAN CORPUSCULAR HEMOGLOBIN 26.3 pg (27.0-31.0); MEAN PLATELET VOLUME 8.2 fl (7.2-11.7); MONO # 0.5 K/uL (0.0-0.8); MONO % 6.6 % (0.0-10.0); NEUT # 5.6 K/uL (1.8-7.0); NEUT % 74.3 % (50.0-75.0); RED CELL DISTRIBUTION WIDTH 12.9 % (11.5-14.5); WHITE BLOOD COUNT 7.5 K/uL (4.8-10.8)
[2016-10-15 07:54] LABS: ALB/GLOB RATIO 1.1 (1.0-2.1); ALKALINE PHOSPHATASE 56 U/L (38-126); ALT/SGPT 30 U/L (9-52); AST/SGOT 14 U/L (14-36); BILIRUBIN,TOTAL 0.5 mg/dl (0.2-1.3); BLOOD UREA NITROGEN 4 mg/dl (7-17); CALCIUM 8.5 mg/dL (8.4-10.2); CARBON DIOXIDE 24 mmol/L (22-30); CHLORIDE 108 mmol/L (98-107); GFR AFRICAN-AMERICAN > 60; GLUCOSE,RANDOM 89 mg/dL (65-105); POTASSIUM 3.7 MMOL/L (3.6-5.0); SODIUM 144 mmol/l (132-148); TOTAL PROTEIN 7.1 G/DL (6.3-8.2)
--- NOTE | 2016-10-15 09:00 | CP.PCM.PN ---
Subjective - Date & Time of Evaluation Date of Evaluation: 10/15/16 Time of Evaluation: 07:30 Objective - Vital Signs/Intake and Output Vital Signs (last 24 hours): Temp Pulse Resp BP Pulse Ox 97.8 F 72 20 102/69 99 10/15/16 00:06 10/15/16 00:06 10/15/16 00:06 10/15/16 00:06 10/15/16 00:06 - Medications Medications: Current Medications Potassium Chloride 20 meq/ (Sodium Chloride) 1,010 mls @ 100 mls/hr IV .Q10H6M [facility] Stop: 10/15/16 17:20 Last Admin: 10/14/16 20:43 Dose: 100 mls/hr Piperacillin Sod/Tazobactam (Sod 3.375 gm/ Sodium Chloride) 100 mls @ 100 mls/ hr IVPB Q6 [facility] Last Admin: 10/15/16 03:30 Dose: 100 mls/hr Ketorolac Tromethamine (Toradol) 30 mg IVP Q6 PRN PRN Reason: Pain, moderate (4-7) Ondansetron HCl (Zofran Inj) 4 mg IVP Q4 PRN PRN Reason: Nausea/Vomiting - Labs Labs: 10/15/16 07:30 10/15/16 07:30
[2016-10-15 09:29] VITALS: O2SAT 96
--- NOTE | 2016-10-15 10:39 | CP.PCM.PN ---
Subjective - Date & Time of Evaluation Date of Evaluation: 10/15/16 Time of Evaluation: 09:55 - Subjective Subjective: Patient was seen and examined at the bedside. Tolerating clear liquid diet. Pain has improved. Objective - Vital Signs/Intake and Output Vital Signs (last 24 hours): Temp Pulse Resp BP Pulse Ox 98.4 F 77 20 106/72 96 10/15/16 09:28 10/15/16 09:28 10/15/16 09:28 10/15/16 09:28 10/15/16 09:28 - Medications Medications: Current Medications Potassium Chloride 20 meq/ (Sodium Chloride) 1,010 mls @ 100 mls/hr IV .Q10H6M [facility] Stop: 10/15/16 17:20 Last Admin: 10/14/16 20:43 Dose: 100 mls/hr Piperacillin Sod/Tazobactam (Sod 3.375 gm/ Sodium Chloride) 100 mls @ 100 mls/ hr IVPB Q6 [facility] Last Admin: 10/15/16 03:30 Dose: 100 mls/hr Ketorolac Tromethamine (Toradol) 30 mg IVP Q6 PRN PRN Reason: Pain, moderate (4-7) Ondansetron HCl (Zofran Inj) 4 mg IVP Q4 PRN PRN Reason: Nausea/Vomiting - Labs Labs: 10/15/16 07:30 10/15/16 07:30 - Constitutional Appears: Well, Non-toxic, No Acute Distress - Head Exam Head Exam: ATRAUMATIC, NORMAL INSPECTION, NORMOCEPHALIC - Eye Exam Eye Exam: EOMI, Normal appearance, PERRL Pupil Exam: NORMAL ACCOMODATION, PERRL - ENT Exam ENT Exam: Mucous Membranes Moist, Normal Exam - Neck Exam Neck Exam: Full ROM, Normal Inspection - Respiratory Exam Respiratory Exam: Clear to Ausculation Bilateral, NORMAL BREATHING PATTERN - Cardiovascular Exam Cardiovascular Exam: REGULAR RHYTHM, +S1, +S2 - GI/Abdominal Exam GI & Abdominal Exam: Soft, Normal Bowel Sounds Additional comments: Very mildly tender in the lower abdomen, ND, no rebound, no guarding, incisions well healed, no erythema, no drainage - Rectal Exam Rectal Exam: Deferred - Extremities Exam Extremities Exam: Full ROM, Normal Inspection - Neurological Exam Neurological Exam: Alert, Awake, CN II-XII Intact, Oriented x3 - Psychiatric Exam Psychiatric exam: Normal Affect, Normal Mood - Skin Skin Exam: Dry, Intact, Normal Color, Warm Assessment and Plan - Assessment and Plan (Free Text) Assessment: 31 y.o. female with colitis s/p appendectomy more that a month ago Plan: - Start low residue diet - pain control - Continue antibiotics - No general surgery intervention at present time - Will follow
--- NOTE | 2016-10-15 15:03 | CP.PCM.PN ---
Subjective - Date & Time of Evaluation Date of Evaluation: 10/15/16 - Subjective Subjective: F/U Colitis. No abdominal pain, eating well. Objective - Vital Signs/Intake and Output Vital Signs (last 24 hours): Temp Pulse Resp BP Pulse Ox 98.4 F 77 20 106/72 96 10/15/16 09:28 10/15/16 09:28 10/15/16 09:28 10/15/16 09:28 10/15/16 09:28 - Medications Medications: Current Medications Potassium Chloride 20 meq/ (Sodium Chloride) 1,010 mls @ 100 mls/hr IV .Q10H6M [facility] Stop: 10/15/16 17:20 Last Admin: 10/15/16 11:14 Dose: 100 mls/hr Piperacillin Sod/Tazobactam (Sod 3.375 gm/ Sodium Chloride) 100 mls @ 100 mls/ hr IVPB Q6 [facility] Last Admin: 10/15/16 11:13 Dose: 100 mls/hr Ketorolac Tromethamine (Toradol) 30 mg IVP Q6 PRN PRN Reason: Pain, moderate (4-7) Ondansetron HCl (Zofran Inj) 4 mg IVP Q4 PRN PRN Reason: Nausea/Vomiting - Labs Labs: 10/15/16 07:30 10/15/16 07:30 - Constitutional Appears: No Acute Distress - Head Exam Head Exam: NORMAL INSPECTION - Eye Exam Eye Exam: PERRL - ENT Exam ENT Exam: Normal Oropharynx - Neck Exam Neck Exam: Normal Inspection - Respiratory Exam Respiratory Exam: NORMAL BREATHING PATTERN - Cardiovascular Exam Cardiovascular Exam: REGULAR RHYTHM - GI/Abdominal Exam GI & Abdominal Exam: Soft, Normal Bowel Sounds. absent: Guarding, Tenderness, Rebound - Extremities Exam Extremities Exam: Normal Inspection - Back Exam Back Exam: NORMAL INSPECTION - Neurological Exam Neurological Exam: Alert, Oriented x3. absent: Motor Sensory Deficit - Psychiatric Exam Psychiatric exam: Normal Affect, Normal Mood - Skin Skin Exam: Normal Color, Warm Assessment and Plan (1) Abdominal pain Status: Resolved (2) Colitis Status: Resolved (3) UTI (urinary tract infection) Status: Acute (4) S/P appendectomy Status: Acute - Assessment and Plan (Free Text) Plan: Pt improved and stable to be discharged, see instruction medication sheet, f/u PMD in one week.
[2016-10-15 16:12] VITALS: BP 95/63; PULSE 86; RESP 18; TEMP 98.3
== END 2016-10-15 18:45 | disposition home or self-care (01) ==
LOC: H.ER 10:44 → H.EROBSV 11:00 → H.ERHOLD 16:26 → H.MEDSURG1 17:22
PROVIDERS: ADMIT Internal Medicine Pulmonary Disease; ATTEND Internal Medicine Pulmonary Disease
DX: K52.9 Noninfective gastroenteritis and colitis, unspecified (principal); N39.0 Urinary tract infection, site not specified